=== PATIENT | female | born 1945 | race Caucasian/White ===

== ENCOUNTER 2017-02-12 20:14 | Emergency (ER) | payer MEDICARE | END 2017-02-12 22:27 | disposition home or self-care (01) | LOC: D.ER 20:14 | DX: L02.612 Cutaneous abscess of left foot (principal); E11.9 Type 2 diabetes mellitus without complications; E03.9 Hypothyroidism, unspecified; I73.9 Peripheral vascular disease, unspecified; M32.9 Systemic lupus erythematosus, unspecified; F17.200 Nicotine dependence, unspecified, uncomplicated ==

== ENCOUNTER → 2017-03-02 12:26 | Outpatient (CLI) | payer MEDICARE ==
[2017-03-02 13:45] LABS: CREATININE - SERUM 0.6 mg/dL (0.6-1.3)
== END | disposition home or self-care (01) ==
LOC: D.CT 12:26
PROVIDERS: Emergency Medicine
DX: I70.211 Atherosclerosis of native arteries of extremities with intermittent claudication, right leg (principal); I70.212 Atherosclerosis of native arteries of extremities with intermittent claudication, left leg; N19 Unspecified kidney failure

== ENCOUNTER 2017-05-06 10:03 | Emergency (ER) | payer MEDICARE ==
[2017-05-06 10:41] LABS: BASOPHILS 0.5 % (0-2); EOSINOPHILS 1.7 % (0-7); HEMATOCRIT 44.3 % (36.0-48.0); HEMOGLOBIN 14.5 g/dL (12-16); LYMPHOCYTES 17.8 % (15-50); MCH 30.2 pg (26.0-34.0); MCHC 32.7 g/dL (31.0-37.0); MCV 92.3 fL (80.0-100.0); MEAN PLATELET VOLUME 11.1 fL (7.4-10.4); MONOCYTES 9.6 % (2-11); NEUTROPHILS 69.4 % (40-80); PLATELET COUNT 249 10x3/uL (130-400); RDW 13.1 % (11.5-14.5); WBC 12.7 10x3/uL (4.8-10.8)
[2017-05-06 10:54] LABS: ALBUMIN 3.3 g/dL (3.4-5.0); ALKALINE PHOSPHATASE 82 U/L (46-116); ALT (SGPT) 20 U/L (10-68); BILIRUBIN - TOTAL 0.27 mg/dL (0.2-1.3); CALC OSMOLALITY 285 mosm/kg (275-300); CALCIUM 8.7 mg/dL (8.5-10.1); CARBON DIOXIDE 27.1 mmol/L (21.0-32.0); CHLORIDE - SERUM 102 mmol/L (98-107); CREATININE - SERUM 0.9 mg/dL (0.6-1.3); GLUCOSE 312 mg/dL (74-106); POTASSIUM - SERUM 3.7 mmol/L (3.5-5.1); PROTEIN - SERUM 7.1 g/dL (6.4-8.2); SODIUM 136 mmol/L (136-145); UREA NITROGEN 17 mg/dL (7-18); eGFR NON AFRICAN AMERICAN 66 mL/min (90-120)
[2017-05-06 11:01] LABS: CREATINE KINASE 60 UL (21-215); PRO BNP 431 pg/mL (0-125)
[2017-05-06 11:02] LABS: TROPONIN-I < 0.017 ng/mL (0.000-0.060)
== END 2017-05-06 19:03 | disposition home or self-care (01) ==
LOC: D.ER 10:03
PROVIDERS: Nurse Practitioner Family
DX: R42 Dizziness and giddiness (principal); I65.23 Occlusion and stenosis of bilateral carotid arteries; E11.8 Type 2 diabetes mellitus with unspecified complications; M32.9 Systemic lupus erythematosus, unspecified; E03.9 Hypothyroidism, unspecified

== ENCOUNTER 2017-07-07 14:44 | Emergency (ER) | payer MEDICARE ==
[2017-08-16] MEDS ORDERED: HYDROCODONE-APA1 TAB PO (10:41)
[2017-08-16] MEDS ORDERED: HUMULIN R100 U/ML SC (10:46)
[2017-08-16] MEDS ORDERED: METOPROLOL TART25 MG PO (10:47)
[2017-08-16] MEDS ORDERED: NOVOLIN N100 U/ML SQ (10:47)
[2017-08-16] MEDS ORDERED: STERAPRED 5MG 125 MG PO (10:48)
[2017-08-16] MEDS ORDERED: CILOSTAZOL100 MG PO (10:48)
[2017-08-16] MEDS ORDERED: PLAQUENIL200 MG PO (10:48)
[2017-08-16] MEDS ORDERED: GLYBURIDE1.25 MG PO (10:50)
[2017-08-20 17:13] VITALS: BMI 32.1
== END 2017-07-07 17:57 | disposition home or self-care (01) ==
LOC: D.ER 14:44
DX: M79.671 Pain in right foot (principal); E11.9 Type 2 diabetes mellitus without complications; M32.9 Systemic lupus erythematosus, unspecified

== ENCOUNTER → 2017-07-17 08:58 | Outpatient (CLI) | payer MEDICARE ==
[~2017-07-17 08:58] MED LIST: ASPIRIN81 MG PO; CILOSTAZOL100 MG PO; DAKIN'S 0.125%480 M1 TOPICAL; FEXOFENADINE HC60 MG PO; GLYBURIDE1.25 MG PO; HUMULIN R100 U/ML SC; HYDROCODONE-APA1 TAB PO; LANTUS INSULIN10 ML SC; LOVENOX30 MG/0.3 SC; METOPROLOL TART25 MG PO; NALOXONE HC0.4 MG/M2 IV; NOVOLIN N100 U/ML SQ; PLAQUENIL200 MG PO; PLAVIX75 MG PO; PLETAL PO; PREDNISONE5 MG PO; PROTONIX I40 MG/VIAL IV; STERAPRED 5MG 125 MG PO; SYNTHROID125 MCG PO; VANCOMYCIN 750750 MG IV; ZOSYN 3.3753.375 G1 IV
--- NOTE | 2017-07-24 12:15 | EC ---
PATIENT:STEPHANIE TRUJILLO DATE OF SERVICE: 07/17/17 SEX: F MEDICAL RECORD: [id number] DATE OF : 49 LOCATION:D.[facility] AGE OF PATIENT: 71 ADMISSION DATE: 07/17/17 REFERRING PHYSICIAN: INTERPRETING PHYSICIAN: ELYSIA VERA MD ECHOCARDIOGRAM REPORT ECHO CHARGES 4 ECHO COMPLETE CLINICAL DIAGNOSIS: HYPERTENSION ECHOCARDIOGRAPHIC MEASUREMENTS (adult normal given) AC root (d.<3.7cm) 3.0 cm LV Septum d (<1.2 cm> 1.3 cm Valve Excursion 1.3 cm LV Septum (systole) 1.6 cm Left Atria (s.<4.0cm> 4.5 cm LVPW d(<1.2cm) 1.3 cm RV (d.<2.3cm) 2.8 cm LVPW (sytole) 1.8 cm LV diastole(<5.6CM) 3.5 cm MV E-F(>70mm/sec) cm LV systole 2.2 cm LVOT Diameter 1.5 cm MV exc.(>10mm) cm Est.ejection fraction (50-75%) % Pericardial Effusion N DOPPLER: LVIT cm/sec A 190 cm/sec E 134 cm/sec LA cm/sec RVSP 27 mmHg LVOT 167 cm/sec AOP1/2T m/s Asc. Ao 190 cm/sec RVOT 103 cm/sec RA cm/sec PA 121 cm/sec AV Gradient Peak 14.78mmHg AV Mean 8.47 mmHg AV Area 1.8 cm MV Gradient Peak 15.64mmHg MV Mean 7.13 mmHg MV Area cm COMMENTS: MVA BY PHT 1.6 CM2 Programmer Numerical Control: Fain CROUCH Industrial Roofer: Fani Blackman TAPE# PACS DATE OF SERVICE: 07/17/2017 ECHOCARDIOGRAM FINDINGS: 1. Left ventricular chamber size is within normal limits. Left ventricular systolic function is normal. Overall ejection fraction estimated at 55% to 60%. 2. Left atrium, right atrium and right ventricular chamber sizes are within normal limits. 3. Valvular structures: Aortic valve demonstrates mild calcific aortic ECHOCARDIOGRAM REPORT [id number] STEPHANIE TRUJILLO sclerosis, but no significant aortic stenosis. The remaining valvular structures have normal structure and motion. 4. Doppler interrogation only reveals mild mitral regurgitation. No other valvular insufficiency or stenosis. 5. No evidence of pericardial effusion or left ventricular thrombus. TRANSINT:[id number] Voice Confirmation ID: [id number] DOCUMENT ID: [id number] ELYSIA VERA MD at 1215 CC: [id number] DICTATION DATE: 07/17/17 1100 LAN MANAGER: 07/17/17 1116 DEP CLI 07/17/17 [place] [id number] [place] [id number]
[2017-08-20 17:13] VITALS: BMI 32.1
== END | disposition home or self-care (01) ==
LOC: D.ECHO 07-16 10:30
DX: I10 Essential (primary) hypertension (principal); R06.02 Shortness of breath

== ENCOUNTER 2017-08-17 05:10 | Inpatient (IN) | payer MEDICARE ==
[2017-08-16 12:42] LABS: HEMATOCRIT 43.3 % (36.0-48.0); HEMOGLOBIN 13.8 g/dL (12-16); MCH 29.8 pg (26.0-34.0); MCHC 31.9 g/dL (31.0-37.0); MCV 93.5 fL (80.0-100.0); MEAN PLATELET VOLUME 11.2 fL (7.4-10.4); RBC 4.63 10x6/uL (4.00-5.40); RDW 13.4 % (11.5-14.5); WBC 12.8 10x3/uL (4.8-10.8)
[2017-08-16 12:45] LABS: APTT 28.3 SECONDS (22.8-39.4); INR 1.09 (0.85-1.17); PROTIME 13.7 SECONDS (11.6-15.0)
[2017-08-16 13:03] LABS: ALBUMIN 3.6 g/dL (3.4-5.0); ALKALINE PHOSPHATASE 109 U/L (46-116); ALT (SGPT) 17 U/L (10-68); BILIRUBIN - TOTAL 0.33 mg/dL (0.2-1.3); CALC OSMOLALITY 286 mosm/kg (275-300); CALCIUM 9.6 mg/dL (8.5-10.1); CARBON DIOXIDE 26.4 mmol/L (21.0-32.0); CHLORIDE - SERUM 102 mmol/L (98-107); CREATININE - SERUM 0.7 mg/dL (0.6-1.3); SODIUM 140 mmol/L (136-145); UREA NITROGEN 25 mg/dL (7-18); eGFR NON AFRICAN AMERICAN 88 mL/min (90-120)
[2017-08-16 13:04] LABS: GLUCOSE 170 mg/dL (74-106)
[2017-08-17] VITALS (30 sets, daily range): BP systolic 122–192; BP diastolic 43–72; BMI 28.4; BMI 30.9
[~2017-08-17] VITALS: Ht 162.6 cm; Wt 84.8 kg
--- NOTE | ~2017-08-17 | OP ---
PATIENT NAME: STEPHANIE TRUJILLO MEDICAL RECORD: [id number] :49 LOCATION:D.[id number] ADMISSION DATE:08/18/17 SURGEON: ELIAN CORBIN MD DATE OF OPERATION: 08/23/2017 PREOPERATIVE DIAGNOSIS: Osteomyelitis of the left foot with gangrenous second and third toes. POSTOPERATIVE DIAGNOSIS: Osteomyelitis of the left foot with gangrenous second and third toes. PROCEDURE: Amputation of the second and third gangrenous toe, amputation of the second toe left toe, amputation of third left toe. Excisional debridement of the foot wound with excision of the medial cuneiform and application of Neox graft. OPERATIVE SUMMARY IN DETAIL: After obtaining the appropriate preoperative orthopedic surgery consent as well as anesthetic consultation, evaluation, and clearance, the patient was brought to the operating room and placed on the operating table in supine position. After general laryngeal mask was administered, left lower extremity was prepped and draped in routine sterile fashion. Tourniquet was not inflated. Attention was first turned to amputation of dry gangrenous toes. Elliptical incision was made about the base of both and they were essentially disarticulated. Wounds were irrigated and closed with 3-0 Prolene. Both knives, scalpel, and rongeur debridement was utilized across the entire bed of the previously infected wound and the medial cuneiform was identified and removed in its entirety using a rongeur as well as a curette. Copious irrigation was then followed by placement of Neox graft, which was sewn into the wound bed over the exposed bone. Having completed this, sterile dressings were applied. The patient was awakened, taken to recovery room in stable condition. All final needle and sponge counts were correct. TRANSINT:[id number] Voice Confirmation ID: [id number] DOCUMENT ID: [id number] ELIAN CORBIN MD at 1651 CC: [id number] DICTATION DATE: 08/27/17 1335 BAR TURNER: 08/27/17 1610 DIS IN 08/24/17 [place] [id number] [place] [id number]
--- NOTE | ~2017-08-17 | HP ---
PATIENT: STEPHANIE TRUJILLO MEDICAL RECORD: [id number] ACCOUNT: [id number] LOCATION:D.OPS : 49 ADMISSION DATE: 08/17/17 HISTORY AND PHYSICAL EXAMINATION STEPHANIE Daniels (71yo, F) ID# [id number]. Date/Time08/08/2017 09:85QIYCP97/29/1948[facility] Dept.[facility] ClinicProviderAYDE PEREZ MDInsuranceMed Primary: [place] Insurance # : [id number] Referring Provider Name : NEVA GONZALEZ Employer Name : UNKNOWN Med Secondary: [employer] (MEDICARE SUPPLEMENT) Insurance # : [id number] Employer Name : UNKNOWN Prescription: Curetis - This member could not be found in the payer's files. Please verify coverage and all member demographic information. Chief Complaint Followup: Chronic ulcer of lower extremity Followup: Atherosclerosis of arteries of the extremities FOLLOWING NON HEALING WOUND LLE/FOLLOWING PVD Patient's Care Team Referring Provider (): NEVA GONZALEZ: [place], [address] [place] [address], , Referring Provider: ERIK DIAZ MD: Margaret BAINS [address] [place] [id number], , Vitals BP:122/64 sitting L arm 08/08/2017 10:16 amBP Cuff Size:adult 08/08/2017 10:16 amHR:68,REG 08/08/2017 10:16 amHt:5 ft 4 in 08/08/2017 10:12 amWt:170 lbs 08/08/2017 10:16 amNotes:HAD AMPUTATION ON LLE GREAT TOE SINCE LAST VISIT, HAD WOUND CLINIC APPT THIS AM 08/08/2017 10:16 amBMI:29.2 08/08/2017 10:16 amAllergies Reviewed Allergies NKDAMedications Reviewed Medications acyclovir 400 mg tablet TAKE 1 TABLET BY MOUTH 3 TIMES A DAY FOR 10 DAYS05/31/17 filledsurescriptsHYDROcodone 10 mg-acetaminophen 325 mg tablet TAKE 1 TABLET BY MOUTH EVERY 6 HOURS NEEDED FOR MODERATE PAIN06/14/17 filledsurescriptsinsulin NPH and reg human insulin 100 unit/mL (70-30)subcutaneous susp Inject by subcutaneous route.03/16/17 enteredIbis Edwardsinsulin regular human03/16/17 Vidal Edwardsmeclizine 25 mg tablet TAKE 1 TABLET BY MOUTH 3 TIMES DAILY NEEDED FOR FORWBJKMU44/24/17 filledsurescriptsmetoprolol tartrate 25mg twice daily03/16/17 Vidal EdwardsPlaquenil 200 mg tablet Take 1 tablet(s) twice a day by oral route.03/16/17 Vidal EdwardsPletal 100 mg tablet Take 1 tablet(s) twice a day by oral route.03/16/17 Vdial EdwardspredniSONE 5mg onmttu04/04/17 Vidal Edwardssulfamethoxazole 800 mg-trimethoprim 160 mg tablet TAKE 1 TABLET BY MOUTH EVERY 12 HOURS FOR 14 DAYS06/14/17 dtnfqmpjnhzxljaykVzaxkmdxk52/04/17 Vidal EdwardsProblems Reviewed Problems Gangrene of foot - Onset: 08/08/2017 Open wound - Onset: 08/08/2017 HISTORY AND PHYSICAL [id number] STEPHANIE TRUJILLO Carotid artery stenosis - Onset: 03/16/2017 Chronic ulcer of lower extremity - Onset: 03/14/2017 Atherosclerosis of arteries of the extremities - Onset: 03/14/2017 Family History Reviewed Family History Father- Heart valve disorderMother- Malignant tumor of colonSocial History Reviewed Social History Cardiology Family history of heart disease?: Y Smoking Status: Former smoker High Cholesterol: Y High blood pressure: Y Diabetes: Y Surgical History Reviewed Surgical History Other - "mutiple leg surgies" 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 HPI Peripheral Vascular Disease Reported by patient. Location: calf; foot Quality: cramping Severity: interferes with normal activity Duration: has noted for months Onset/Timing: intermittent; several times per day Context: during walking Alleviating Factors: rest Aggravating Factors: walking Associated Symptoms: numbness; paresthesias; skin discoloration nonhealing wound left foot ROS Patient reports exercise intolerance but reports no fever, no night sweats, no significant weight gain, and no significant weight loss. She reports shortness of breath when walking but reports no chest pain, no arm pain on exertion, no shortness of breath when lying down, no palpitations, and no known heart murmur. She reports urinary loss of control but reports no difficulty urinating, no hematuria, and no increased frequency. She reports muscle aches, muscle weakness, and arthralgias/joint pain but reports no back pain and no swelling in the extremities; nonhealing wound and dry gangrene. She reports no abnormal mole, no jaundice, and no rashes; nonhealing ulcer left MP joint. left toe. She reports numbness but reports HISTORY AND PHYSICAL [id number] STONE,STEPHANIE R no loss of consciousness, no weakness, no seizures, no dizziness, and no headaches; Tremor with decreased blood pressure. She reports no dry eyes, no irritation, and no vision change. She reports no difficulty hearing and no ear pain. She reports no frequent nosebleeds and no nose/s inus problems. She reports no sore throat, no bleeding gums, no snoring, no dry mouth, no mouth ulcers, no oral abnormalities, and no teeth problems. She reports no jugular vein distension and no swollen glands. She reports no cough, no wheezing, no short n ess of breath, and no coughing up blood. She reports no abdominal pain, no vomiting, normal appetite, no diarrhea, not vomiting blood, no nausea, and no constipation. She reports no depression, no sleep disturbances, feeling safe in relationship, and no a lcohol abuse. She reports no fatigue. She reports no swollen glands and no bruising. She reports no runny nose, no sinus pressure, no itching, no hives, and no frequent sneezing. ROS as noted in the HPI Physical Exam Patient is a 71-year-old female. Constitutional: General Appearance healthy-appearing, well developed, and overweight. Level of Distress chronically ill. Ambulation ambulation with walker. Cardiovascular: Apical Impulse not displaced or no thrill. Heart Auscultation normal s1 and s2, no rubs or gallops, and RRR and murmur (aortic stenosis Mitral regurgitation). Arterial Pulses no abdominal aorta bruits, femoral bruits, or popliteal bruits; popliteal not palpable (bilateral) and dorsalis pedis not palpable (bilateral); and 2+ bilateral, carotid 2+ bilateral, and femoral 2+ bilateral. Edema no edema or varicosities. Lungs: Repiratory Effort no dyspnea. Percussion no hyperresonance or dullness or flatness. Auscultation no wheezing, rhonchi, or rales / crackles and breathing sounds normal, good air movement, and CTA except as noted. Abdomen: Bowl Sounds normal. Inspection and Palpation no tenderness, guarding, masses, or rebound tenderness and soft and non-distended. Liver non-tender and no hepatomegaly. Spleen non-tender and no splenomegaly. Hernia none palpable. Musculoskeletal System: Gait And Stance wide-based and irregular gait and stance. Digits and Nails normal nails, no cyanosis, and abnormal nails; ulcer MP joint left great toe medially. Joints, Bones, and Muscles limited ROM and abnormal strength; nonhealing wound left great toe amputation. Neurologic: Cranial Nerves grossly intact. Reflexes DTRs 2+ bilaterally throughout. Sensation abnormal. Lymph Nodes: Lymph Nodes no cervical LAD, supraclavicular LAD, axillary LAD, or inguinal LAD. Eyes: Lids and Conjunctivae no discharge or pallor and non-injected. Pupils PERRLA. Cornea grossly intact. EOM EOMI. Lens clear. Sclera non-icteric. Neck: Neck no masses or enlarged lymph nodes and supple, trachea midline, and carotid bruits (bilaterally). Thyroid no enlargement or nodules and non-tender. Skin: Inspection and Palpation no rash, lesions, ulcers, jaundice, or abnormal nevi. Assessment / Plan severe atherosclerosis left superficial femoral artery and infrageniculate vessels with open wound and gangrene left foot HISTORY AND PHYSICAL [id number] STEPHANIE TRUJILLO 1. Atherosclerosis of arteries of the extremities I70.209: Unspecified atherosclerosis of [place] arteries of extremities, unspecified extremity 2. Chronic ulcer of lower extremity L97.909: Non-pressure ch ronic ulcer of unspecified part of unspecified lower leg with unspecified severity 3. Gangrene of foot I96: Gangrene, not elsewhere classified Discussion Notes open wound left foot with gangrenous second and third toes Severe superficial femoral artery popliteal and infrageniculate atherosclerosis I have discussed her disease process with her in detail as well as the alternative methods of treatment we discussed endovascular as well as open procedures and the expected benefits and risk. Th e risks included bleeding infection stroke and as well as well as the imponderables. she understands all of the above and wishes to proceed with planned procedure Plan right to left lower extremity intervention probable atherectomy AYDE PEREZ MD at 1550 CC: [id number] DICTATION DATE: 08/08/17 0945 MARKETING RESEARCH COORDINATOR: MARKIE 08/09/17 1430 PRE [facility] [address] [place] [address]
--- NOTE | ~2017-08-17 | OP ---
PATIENT NAME: STEPHANIE TRUJILLO MEDICAL RECORD: [id number] :49 LOCATION:.[facility] D.CV03 ADMISSION DATE:08/18/17 SURGEON: EARL HOLLINGSWORTH MD DATE OF OPERATION: 08/17/2017 SURGEON: Earl Hollingsworth MD ANESTHESIA: General endotracheal, Dr. Diallo. OPERATION PERFORMED: 1. Right retrograde sheath placements, 4-Guyanese, 5-Guyanese, 6-Guyanese long. 2. Right retrograde external iliac arteriogram. 3. Left distal external iliac arteriogram. 4. Left superficial femoral artery arteriogram. 5. 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 6. Left popliteal and peroneal artery arteriogram. 7. Left popliteal artery arteriogram. 8. Left plantar arch arteriogram. 9. Diamondback atherectomy 1.25 device of the distal popliteal artery. 10. Diamondback 1.25 left posterior tibioperoneal artery trunk. 11. Angioplasty of the left posterior tibial artery with a 3.0 balloon. 12. Angioplasty of posterior tibial artery with a 2.0 balloon. 13. Diamondback atherectomy of the entire left superficial femoral artery. 14. Angioplasty of the entire left superficial femoral artery with a 4 x 300 balloon. 15. Left common femoral arteriogram with runoff. 16. Left popliteal artery at the ankle gram of the foot. PREOPERATIVE DIAGNOSIS: Gangrenous toes, left foot nonhealing wound. POSTOPERATIVE DIAGNOSIS: Multiple stenoses and chronic total occlusions of the left superficial femoral artery, severe stenosis of the distal popliteal artery greater than 90%, severe stenosis of the peroneal artery trunk and posterior tibial artery. INDICATION FOR OPERATION: Gangrene, left foot. FLUORO TIME: 27 minutes and 20 seconds. CONTRAST: 289 mL. FINDINGS OF THE OPERATION: 1. Left retrograde external iliac arteriogram demonstrates nonocclusive disease in the common iliac artery and external iliac artery. 2. Left distal external iliac arteriogram demonstrates severe stenosis at the takeoff of the superficial femoral artery. 3. Left superficial femoral arteriogram, selective demonstrates multiple stenotic areas greater than 90% and chronic total occlusion in the midportion of the superficial femoral artery times 2. 4. 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 5. Left popliteal arteriogram demonstrates severe stenosis of the distal popliteal artery at the takeoff of the anterior tibial artery. 6. Left posterior tibioperoneal artery arteriogram demonstrates severe stenosis at the bifurcation of the posterior tibial artery and peroneal artery greater than 90%. OPERATIVE REPORT [id number] STEPHANIE TRUJILLO 7. Left posterior tibial artery stenosis 70% in the proximal one-third. 8. Left posterior tibial plantar arch arteriogram demonstrates severe disease, but a continuous posterior tibial artery on the plantar surface. 9. Diamondback atherectomy of left popliteal artery, much improved flow, but suboptimal. 10. Diamondback atherectomy of left posterior tibioperoneal artery trunk better flow, but suboptimal. 11. Angioplasty of the left posterior tibial artery, peroneal artery trunk with a 3.0 balloon as well as the popliteal artery with an excellent result and no residual stenosis. 12. Angioplasty of the proximal posterior tibial artery with a 2.0 balloon demonstrates much improved flow through this dominant artery to the foot. 13. Diamondback atherectomy of the left superficial femoral artery demonstrates multiple areas of stenosis with improved flow. 14. Angioplasty of the left superficial femoral artery 4.0 x 300 demonstrates much improved flow through the entire superficial femoral artery with brisk runoff to the foot. 15. Left common femoral arteriogram with runoff demonstrates good flow through the superficial femoral artery, popliteal artery, posterior tibioperoneal artery trunk and good flow to the ankle in the peroneal artery with collaterals to the foot and had an excellent dominant artery to the foot via the posterior tibial artery. 16. Posterior tibial arteriogram at the ankle demonstrates good flow to the nonhealing area of the foot. DESCRIPTION OF PROCEDURE: After informed consent, adequate preoperative medication evaluation, the patient was brought to the operating room, placed on the table in the supine position. After induction of general endotracheal anesthesia and application of appropriate monitoring devices, the chest, neck, abdomen, and both legs were prepped and draped in a sterile field utilizing Betadine scrub, alcohol, and Betadine solution. A Betadine-impregnated drape was also used. Ultrasound was used to localize the superficial femoral artery. A micropuncture was used, a 4-Guyanese sheath placed and exchanged for a 5-Guyanese sheath. An arteriogram demonstrated the above findings as well as the anatomy. A Glidewire was manipulated into the aorta followed by a rim catheter. The rim catheter was then seated in the left common iliac artery and a Glidewire placed into the profunda femoral artery. The catheter was advanced through the profunda femoral artery and exchange made for Amplatz wire, exchange was then made for a long 6-Guyanese sheath. The superficial femoral artery was identified by the common femoral arteriogram. The superficial femoral artery was then cannulated and arteriogram demonstrated multiple severe stenotic areas and 2 chronic total occlusions. Utilizing multiple wires, catheters and arteriograms, the superficial femoral artery was negotiated and a popliteal artery performed demonstrated the severe stenosis at the takeoff of the anterior tibial artery. Utilizing multiple wires and Quick-Cross catheters, the posterior tibial artery was cannulated. Popliteal arteriogram was used to manipulate a catheter into the posterior tibial artery and arteriogram demonstrates severe stenosis at the bifurcation of the posterior tibial and peroneal artery. The posterior tibial artery was then cannulated and a wire manipulated into the ankle. Arteriogram at the ankle demonstrated a patent posterior tibial artery and plantar arch. Exchange was made for a Viper wire. Diamondback atherectomy was then performed on the posterior tibioperoneal artery trunk as well as the popliteal artery. These were dilated with 3.0 x 120 balloon with an excellent result. The attention was then turned toward the superficial femoral artery. The Diamondback was then used to atherectomize the OPERATIVE REPORT [id number] STEPHANIE TRUJILLO R entire superficial femoral artery with much improved flow. A 4.0 x 300 balloon was then used to dilate the superficial femoral artery with an excellent result. Arteriogram confirmed good flow through this area. A catheter was placed in the popliteal artery and an infrageniculate arteriogram demonstrated good flow into the posterior tibioperoneal artery trunk. A 0.018 Quick-Cross catheter was placed in the posterior tibial artery at the ankle and arteriogram demonstrated good flow through the posterior tibial artery into the foot and ulcerated area. The catheters, wires, and sheaths were removed. A 6-Guyanese Angio-Seal was used to close the puncture site on the right and 50 mg of protamine were given to partially reverse the heparin. The patient had good Doppler pulses in both feet. She tolerated the procedure well and transferred to the CVICU in satisfactory condition. TRANSINT:[id number] Voice Confirmation ID: [id number] DOCUMENT ID: [id number] EARL HOLLINGSWORTH MD at 1337 CC: [id number] DICTATION DATE: 08/17/17 1452 [employer] COMPANY PRODUCER: 08/17/17 1536 ADM IN [facility] 0 [place] [id number]
[~2017-08-17 05:10] MED LIST changes: -ASPIRIN81 MG PO; -DAKIN'S 0.125%480 M1 TOPICAL; -FEXOFENADINE HC60 MG PO; -LANTUS INSULIN10 ML SC; -LOVENOX30 MG/0.3 SC; -NALOXONE HC0.4 MG/M2 IV; -PLAVIX75 MG PO; -PLETAL PO; -PREDNISONE5 MG PO; -PROTONIX I40 MG/VIAL IV; -SYNTHROID125 MCG PO; -VANCOMYCIN 750750 MG IV; -ZOSYN 3.3753.375 G1 IV
[2017-08-17] MEDS ORDERED: DAKIN'S 0.125%480 M1 TOPICAL (05:58)
[2017-08-17] MEDS ORDERED: PREDNISONE5 MG PO (18:38)
[2017-08-17 20:29] LABS: APPEARANCE CLEAR (CLEAR); BILIRUBIN NEGATIVE (NEGATIVE); COLOR YELLOW (YELLOW); GLUCOSE 500 mg/dL (NEGATIVE); KETONE NEGATIVE (NEGATIVE); NITRITE NEGATIVE (NEGATIVE); PROTEIN NEGATIVE (NEGATIVE); UROBILINOGEN NORMAL (NORMAL)
[2017-08-17 20:40] LABS: BACTERIA FEW /hpf (NONE SEEN); EPITHELIAL CELLS 0-5 /hpf (0-5); RED CELLS - URINE OCC /hpf (0-5)
[2017-08-18] VITALS (26 sets, daily range): BP systolic 113–150; BP diastolic 28–60; BMI 32.1
[2017-08-18 06:18] LABS: HEMATOCRIT 34.4 % (36.0-48.0); HEMOGLOBIN 10.7 g/dL (12-16); MCH 29.1 pg (26.0-34.0); MCHC 31.1 g/dL (31.0-37.0); MCV 93.5 fL (80.0-100.0); MEAN PLATELET VOLUME 10.9 fL (7.4-10.4); RBC 3.68 10x6/uL (4.00-5.40); RDW 13.6 % (11.5-14.5); WBC 17.1 10x3/uL (4.8-10.8)
[2017-08-18 06:42] LABS: ANION GAP 11.7 mmol/L (8-16); BILIRUBIN - TOTAL 0.4 mg/dL (0.2-1.3); CALCIUM 7.7 mg/dL (8.5-10.1); POTASSIUM - SERUM 3.7 mmol/L (3.5-5.1); PROTEIN - SERUM 5.5 g/dL (6.4-8.2)
[2017-08-18 06:43] LABS: ALBUMIN 2.3 g/dL (3.4-5.0); CREATININE - SERUM 0.9 mg/dL (0.6-1.3)
[2017-08-18 09:26] LABS: % SATURATION 11 % (15-55); IRON 26 ug/dl (35-150); TOTAL IRON BIND CAPACITY 217 ug/dl (260-445); UNSAT IRON BIND CAPACITY 191 ug/dl (150-375)
[2017-08-19] VITALS: BP 92/47
[2017-08-19 04:00] VITALS: BP 134/49
[2017-08-19 05:20] LABS: BASOPHILS 0.2 % (0-2); EOSINOPHILS 7.4 % (0-7); HEMATOCRIT 34.2 % (36.0-48.0); HEMOGLOBIN 10.5 g/dL (12-16); IMMATURE GRANULOCYTES 0.6 % (0-5); LYMPHOCYTES 8.1 % (15-50); MCHC 30.7 g/dL (31.0-37.0); MCV 94.5 fL (80.0-100.0); MEAN PLATELET VOLUME 10.8 fL (7.4-10.4); MONOCYTES 7.6 % (2-11); NEUTROPHILS 76.1 % (40-80); PLATELET COUNT 227 10x3/uL (130-400); RBC 3.62 10x6/uL (4.00-5.40); RDW 13.7 % (11.5-14.5)
[2017-08-19 05:22] LABS: WBC 12.6 10x3/uL (4.8-10.8)
[2017-08-19 08:15] VITALS: BP 153/56
[2017-08-19 12:43] VITALS: BP 178/72
[2017-08-19 16:11] VITALS: BP 156/57
[2017-08-19 20:00] VITALS: BP 133/49
[2017-08-20 04:00] VITALS: BP 169/61
[2017-08-20 06:29] LABS: CALCIUM 8.3 mg/dL (8.5-10.1); CARBON DIOXIDE 27.5 mmol/L (21.0-32.0); CHLORIDE - SERUM 103 mmol/L (98-107); CREATININE - SERUM 0.7 mg/dL (0.6-1.3); SODIUM 138 mmol/L (136-145); eGFR NON AFRICAN AMERICAN 88 mL/min (90-120)
[2017-08-20 06:33] LABS: CALC OSMOLALITY 281 mosm/kg (275-300); GLUCOSE 182 mg/dL (74-106); UREA NITROGEN 14 mg/dL (7-18)
[2017-08-20 06:41] LABS: APTT 41.3 SECONDS (22.8-39.4); INR 1.28 (0.85-1.17); PROTIME 15.5 SECONDS (11.6-15.0)
[2017-08-20 08:02] LABS: BASOPHILS 0.3 % (0-2); EOSINOPHILS 4.3 % (0-7); HEMATOCRIT 31.6 % (36.0-48.0); HEMOGLOBIN 9.8 g/dL (12-16); IMMATURE GRANULOCYTES 1.3 % (0-5); LYMPHOCYTES 19.9 % (15-50); MCH 29.2 pg (26.0-34.0); MEAN PLATELET VOLUME 11.2 fL (7.4-10.4); MONOCYTES 12.5 % (2-11); NEUTROPHILS 61.7 % (40-80); PLATELET COUNT 227 10x3/uL (130-400); RBC 3.36 10x6/uL (4.00-5.40); RDW 13.7 % (11.5-14.5); WBC 11.1 10x3/uL (4.8-10.8)
[2017-08-20 08:14] VITALS: BP 184/65
[2017-08-20 09:27] LABS: MAGNESIUM - SERUM 1.7 mg/dL (1.8-2.4); PHOSPHOROUS 2.9 mg/dL (2.5-4.9)
[2017-08-20 12:11] LABS: FOLATE (FOLIC ACID) - SERUM >20.0 ng/mL (>3.0)
[2017-08-20 13:11] VITALS: BP 202/70
[2017-08-20 17:13] VITALS: Ht 162.6 cm; Wt 84.8 kg
[2017-08-20 17:27] VITALS: BP 172/56
[2017-08-20 20:00] VITALS: BP 168/63
[2017-08-21 04:00] VITALS: BP 197/64
[2017-08-21 05:18] LABS: BASOPHILS 0.3 % (0-2); EOSINOPHILS 6.6 % (0-7); HEMATOCRIT 33.6 % (36.0-48.0); HEMOGLOBIN 10.5 g/dL (12-16); IMMATURE GRANULOCYTES 1.3 % (0-5); LYMPHOCYTES 24.5 % (15-50); MCH 29.1 pg (26.0-34.0); MCHC 31.3 g/dL (31.0-37.0); MCV 93.1 fL (80.0-100.0); MEAN PLATELET VOLUME 10.5 fL (7.4-10.4); MONOCYTES 13.3 % (2-11); PLATELET COUNT 245 10x3/uL (130-400); RBC 3.61 10x6/uL (4.00-5.40); RDW 13.6 % (11.5-14.5); WBC 10.7 10x3/uL (4.8-10.8)
[2017-08-21 05:49] LABS: ALBUMIN 2.3 g/dL (3.4-5.0); ALKALINE PHOSPHATASE 77 U/L (46-116); ALT (SGPT) 13 U/L (10-68); BILIRUBIN - TOTAL 0.26 mg/dL (0.2-1.3); CALC OSMOLALITY 286 mosm/kg (275-300); CALCIUM 8.7 mg/dL (8.5-10.1); CARBON DIOXIDE 28.9 mmol/L (21.0-32.0); CHLORIDE - SERUM 105 mmol/L (98-107); CREATININE - SERUM 0.7 mg/dL (0.6-1.3); GLUCOSE 150 mg/dL (74-106); SODIUM 142 mmol/L (136-145); UREA NITROGEN 15 mg/dL (7-18); eGFR NON AFRICAN AMERICAN 88 mL/min (90-120)
[2017-08-21 09:30] VITALS: BP 173/55
[2017-08-21 10:05] LABS: MAGNESIUM - SERUM 1.8 mg/dL (1.8-2.4); PHOSPHOROUS 3.5 mg/dL (2.5-4.9)
[2017-08-21 12:01] VITALS: BP 175/69
[2017-08-21 16:31] VITALS: BP 166/55
[2017-08-21 20:00] VITALS: BP 153/63
[2017-08-22 04:00] VITALS: BP 138/48
[2017-08-22 06:44] LABS: ALBUMIN 2.1 g/dL (3.4-5.0); ALKALINE PHOSPHATASE 68 U/L (46-116); ALT (SGPT) 13 U/L (10-68); BILIRUBIN - TOTAL 0.21 mg/dL (0.2-1.3); CALC OSMOLALITY 285 mosm/kg (275-300); CARBON DIOXIDE 26.5 mmol/L (21.0-32.0); CHLORIDE - SERUM 102 mmol/L (98-107); CREATININE - SERUM 0.7 mg/dL (0.6-1.3); GLUCOSE 271 mg/dL (74-106); POTASSIUM - SERUM 3.2 mmol/L (3.5-5.1); PROTEIN - SERUM 5.4 g/dL (6.4-8.2); SODIUM 137 mmol/L (136-145); UREA NITROGEN 19 mg/dL (7-18); eGFR NON AFRICAN AMERICAN 88 mL/min (90-120)
[2017-08-22 07:40] LABS: BASOPHILS 0.6 % (0-2); EOSINOPHILS 7.4 % (0-7); HEMATOCRIT 33.2 % (36.0-48.0); HEMOGLOBIN 10.6 g/dL (12-16); IMMATURE GRANULOCYTES 2.2 % (0-5); MCH 29.6 pg (26.0-34.0); MCHC 31.9 g/dL (31.0-37.0); MCV 92.7 fL (80.0-100.0); MEAN PLATELET VOLUME 10.6 fL (7.4-10.4); MONOCYTES 10.4 % (2-11); NEUTROPHILS 48.4 % (40-80); PLATELET COUNT 290 10x3/uL (130-400); RBC 3.58 10x6/uL (4.00-5.40); RDW 13.6 % (11.5-14.5); WBC 12.5 10x3/uL (4.8-10.8)
[2017-08-22 08:16] VITALS: BP 132/60
[2017-08-22 12:25] VITALS: BP 170/67
[2017-08-22 16:21] VITALS: BP 186/69
[2017-08-22 20:00] VITALS: BP 183/71
[2017-08-23] VITALS (10 sets, daily range): BP systolic 154–200; BP diastolic 49–92
[2017-08-23 05:11] LABS: BASOPHILS 0.6 % (0-2); HEMATOCRIT 34.6 % (36.0-48.0); HEMOGLOBIN 10.9 g/dL (12-16); IMMATURE GRANULOCYTES 2.8 % (0-5); LYMPHOCYTES 25.7 % (15-50); MCH 29.4 pg (26.0-34.0); MCHC 31.5 g/dL (31.0-37.0); MCV 93.3 fL (80.0-100.0); MEAN PLATELET VOLUME 10.4 fL (7.4-10.4); MONOCYTES 12.2 % (2-11); NEUTROPHILS 50.7 % (40-80); PLATELET COUNT 284 10x3/uL (130-400); RBC 3.71 10x6/uL (4.00-5.40); RDW 13.8 % (11.5-14.5); WBC 12.7 10x3/uL (4.8-10.8)
[2017-08-23 07:11] LABS: ALBUMIN 2.3 g/dL (3.4-5.0); ALKALINE PHOSPHATASE 71 U/L (46-116); ALT (SGPT) 12 U/L (10-68); CALCIUM 8.6 mg/dL (8.5-10.1); CARBON DIOXIDE 26.5 mmol/L (21.0-32.0); CHLORIDE - SERUM 109 mmol/L (98-107); CREATININE - SERUM 0.6 mg/dL (0.6-1.3); POTASSIUM - SERUM 3.7 mmol/L (3.5-5.1); PROTEIN - SERUM 5.9 g/dL (6.4-8.2); SODIUM 145 mmol/L (136-145); UREA NITROGEN 16 mg/dL (7-18); VANCOMYCIN - TROUGH 22.5 ug/mL (10.0-20.0); eGFR NON AFRICAN AMERICAN > 90 mL/min (90-120)
[2017-08-23 07:12] LABS: CALC OSMOLALITY 290 mosm/kg (275-300); GLUCOSE 116 mg/dL (74-106)
[2017-08-24] VITALS: BP 154/47
[2017-08-24 04:00] VITALS: BP 137/46
[2017-08-24 05:29] LABS: ALBUMIN 2.1 g/dL (3.4-5.0); ALKALINE PHOSPHATASE 67 U/L (46-116); ALT (SGPT) 12 U/L (10-68); BILIRUBIN - TOTAL 0.32 mg/dL (0.2-1.3); CALC OSMOLALITY 285 mosm/kg (275-300); CALCIUM 8.1 mg/dL (8.5-10.1); CARBON DIOXIDE 25.5 mmol/L (21.0-32.0); CHLORIDE - SERUM 105 mmol/L (98-107); CREATININE - SERUM 0.8 mg/dL (0.6-1.3); GLUCOSE 202 mg/dL (74-106); POTASSIUM - SERUM 3.2 mmol/L (3.5-5.1); PROTEIN - SERUM 5.6 g/dL (6.4-8.2); SODIUM 140 mmol/L (136-145); UREA NITROGEN 16 mg/dL (7-18); eGFR NON AFRICAN AMERICAN 75 mL/min (90-120)
[2017-08-24 07:55] VITALS: BP 145/53
[2017-08-24 12:13] VITALS: BP 150/53
[2017-08-24] MEDS ORDERED: FEXOFENADINE HC60 MG PO (12:21)
[2017-08-24] MEDS ORDERED: PLETAL PO (12:21)
[2017-08-24] MEDS ORDERED: PLAVIX75 MG PO (12:21)
[2017-08-24] MEDS ORDERED: ZOSYN 3.3753.375 G1 IV (12:21)
[2017-08-24] MEDS ORDERED: NALOXONE HC0.4 MG/M2 IV (12:22)
[2017-08-24] MEDS ORDERED: DAKIN'S 0.125%480 M1 TOPICAL (12:22)
[2017-08-24] MEDS ORDERED: LOVENOX30 MG/0.3 SC (12:22)
[2017-08-24] MEDS ORDERED: PROTONIX I40 MG/VIAL IV (12:22)
[2017-08-24] MEDS ORDERED: ASPIRIN81 MG PO (12:22)
[2017-08-24] MEDS ORDERED: HUMULIN R100 U/ML SC (12:23)
[2017-08-24] MEDS ORDERED: SYNTHROID125 MCG PO (12:23)
[2017-08-24] MEDS ORDERED: LANTUS INSULIN10 ML SC (12:23)
[2017-08-24] MEDS ORDERED: VANCOMYCIN 750750 MG IV (12:24)
[2017-08-29 17:11] LABS: AEROBE ID Final report (())
== END 2017-08-24 14:36 | disposition short-term general hospital (02) | DRG 854 ==
LOC: OBSVTIME → D.OPS 05:10 → D.PAN 07:30 → D.OPS 07:30 → OBSVTIME 14:18 → D.CVICU 14:18 → D.OPS 14:18 → D.CVICU 14:18 → D.MS 08-18 10:01 → D.CVICU 08-18 10:02 → D.MS 08-18 10:02 → D.CVICU 08-18 10:02 → D.MS 08-18 19:24
PROVIDERS: Emergency Medicine; Internal Medicine Cardiovascular Disease; Internal Medicine Nephrology; Orthopaedic Surgery
PROC: 04CN3ZZ Extirpation of Matter from Left Popliteal Artery, Percutaneous Approach (ICD-10-PCS; 2017-08-17)
PROC: 047S3ZZ Dilation of Left Posterior Tibial Artery, Percutaneous Approach (ICD-10-PCS; 2017-08-17)
PROC: 047L3ZZ Dilation of Left Femoral Artery, Percutaneous Approach (ICD-10-PCS; 2017-08-17)
PROC: 04CS3ZZ Extirpation of Matter from Left Posterior Tibial Artery, Percutaneous Approach (ICD-10-PCS; 2017-08-17)
PROC: 04CU3ZZ Extirpation of Matter from Left Peroneal Artery, Percutaneous Approach (ICD-10-PCS; 2017-08-17)
PROC: 04CL3ZZ Extirpation of Matter from Left Femoral Artery, Percutaneous Approach (ICD-10-PCS; 2017-08-17)
PROC: B41F1ZZ Fluoroscopy of Right Lower Extremity Arteries using Low Osmolar Contrast (ICD-10-PCS; 2017-08-17)
PROC: B41D1ZZ Fluoroscopy of Aorta and Bilateral Lower Extremity Arteries using Low Osmolar Contrast (ICD-10-PCS; 2017-08-17)
PROC: B41G1ZZ Fluoroscopy of Left Lower Extremity Arteries using Low Osmolar Contrast (ICD-10-PCS; principal; 2017-08-17 07:30)
PROC: 0Y6S0Z0 Detachment at Left 2nd Toe, Complete, Open Approach (ICD-10-PCS; 2017-08-23)
PROC: 0Y6U0Z0 Detachment at Left 3rd Toe, Complete, Open Approach (ICD-10-PCS; 2017-08-23)
DX: A41.9 Sepsis, unspecified organism (principal); E11.52 Type 2 diabetes mellitus with diabetic peripheral angiopathy with gangrene; I70.262 Atherosclerosis of native arteries of extremities with gangrene, left leg; I70.92 Chronic total occlusion of artery of the extremities; M86.9 Osteomyelitis, unspecified; E44.0 Moderate protein-calorie malnutrition; Z79.4 Long term (current) use of insulin; E11.65 Type 2 diabetes mellitus with hyperglycemia; M32.9 Systemic lupus erythematosus, unspecified; D50.9 Iron deficiency anemia, unspecified; E03.9 Hypothyroidism, unspecified; I10 Essential (primary) hypertension; E78.5 Hyperlipidemia, unspecified; F41.9 Anxiety disorder, unspecified; F32.9 Major depressive disorder, single episode, unspecified

== ENCOUNTER → 2017-11-06 10:42 | Outpatient (CLI) | payer MEDICARE ==
[2017-08-20 17:13] VITALS: BMI 32.1
[~2017-11-06 10:42] MED LIST changes: +ASPIRIN81 MG PO; +DAKIN'S 0.125%480 M1 TOPICAL; +DOXYCYCLINE HY100 M2 PO; +FEXOFENADINE HC60 MG PO; +LANTUS INSULIN10 ML SC; +LOVENOX30 MG/0.3 SC; +NALOXONE HC0.4 MG/M2 IV; +PLAVIX75 MG PO; +PLETAL PO; +PREDNISONE5 MG PO; +PROTONIX I40 MG/VIAL IV; +SYNTHROID125 MCG PO; +VANCOMYCIN 750750 MG IV; +ZOSYN 3.3753.375 G1 IV
== END | disposition home or self-care (01) ==
LOC: D.MRI 10:42
DX: M79.672 Pain in left foot (principal)

== ENCOUNTER 2017-11-26 11:00 | Day surgery (SDC) | payer MEDICARE ==
[2017-11-23 11:33] LABS: HEMATOCRIT 42.5 % (36.0-48.0); HEMOGLOBIN 13.7 g/dL (12-16); MCH 29.7 pg (26.0-34.0); MCHC 32.2 g/dL (31.0-37.0); MEAN PLATELET VOLUME 10.7 fL (7.4-10.4); RBC 4.62 10x6/uL (4.00-5.40); RDW 13.4 % (11.5-14.5); WBC 10.5 10x3/uL (4.8-10.8)
[2017-11-23 11:58] LABS: CALC OSMOLALITY 282 mosm/kg (275-300); CALCIUM 9.1 mg/dL (8.5-10.1); CARBON DIOXIDE 26.3 mmol/L (21.0-32.0); CHLORIDE - SERUM 103 mmol/L (98-107); CREATININE - SERUM 0.7 mg/dL (0.6-1.3); POTASSIUM - SERUM 3.9 mmol/L (3.5-5.1); SODIUM 140 mmol/L (136-145); UREA NITROGEN 22 mg/dL (7-18); eGFR NON AFRICAN AMERICAN 88 mL/min (90-120)
[2017-11-23 12:02] LABS: GLUCOSE 118 mg/dL (74-106)
[~2017-11-26] VITALS: Ht 162.6 cm; Wt 76.8 kg
--- NOTE | ~2017-11-26 | OP ---
PATIENT NAME: STEPHANIE TRUJILLO MEDICAL RECORD: [id number] :49 LOCATION:[facility] ADMISSION DATE: SURGEON: ELIAN CORBIN MD DATE OF OPERATION: 11/26/2017 PREOPERATIVE DIAGNOSIS: Residual osteomyelitis of the medial cuneiform of the left foot. POSTOPERATIVE DIAGNOSIS: Residual osteomyelitis of the medial cuneiform of the left foot. PROCEDURES: Wide excisional debridement approximately 41 cm-squared in total to include skin, subcutaneous tissue, portions of fat, fascia, muscle, and bone that is in fact the entire medial cuneiform. SURGEON: Elian Corbin MD ANESTHESIA: General. INTRAOPERATIVE COMPLICATIONS: None. SUMMARY OF PATHOLOGIC FINDINGS: The patient's medial cuneiform was clearly infected and in fact, the entire cuneiform itself was resected and some further what appeared to be infectious material and the residual second metatarsal was also resected. Having completed this, all nonviable-appearing tissue was removed with a rongeur, scalpel, and curette. Wound was again copiously irrigated. At this point, 50 vial of Neox Mumtaz was then poured directly into the wound to enhance healing and then a combination of gipv-kag-pif-near sutures with large Prolene were utilized to reapproximate the skin without causing too much tension. Sterile dressings were applied. Tourniquet was not used. The patient was awakened, taken to recovery room in stable condition. All final needle and sponge counts were correct. TRANSINT:[id number] Voice Confirmation ID: [id number] DOCUMENT ID: [id number] ELIAN CORBIN MD at 1341 CC: [id number] DICTATION DATE: 11/26/172226 CRUCIBLE FURNACE TENDER: 11/27/17 0850 [facility] 11/27/17 [place] [address]
[~2017-11-26 11:00] MED LIST changes: -DOXYCYCLINE HY100 M2 PO
[2017-11-26 12:12] VITALS: BP 188/74; BMI 29.2
[2017-11-26] MEDS ORDERED: HYDROCODONE-APA1 TAB PO (17:04)
[2017-11-26] MEDS ORDERED: DOXYCYCLINE HY100 M2 PO (17:05)
[2017-11-27 00:41] VITALS: BP 158/59
[2017-11-27 02:03] VITALS: Ht 162.6 cm; Wt 76.8 kg
[2017-11-27 05:01] VITALS: BP 130/67
[2017-11-27 09:10] VITALS: BP 169/71
== END 2017-11-27 12:00 | disposition home health service (06) ==
LOC: D.OPS 11:00 → D.PAN 13:00 → D.OPS 13:00 → D.PAN 13:45 → D.OPS 13:45 → D.PAN 15:40 → D.MS 21:55 → D.OPS 11-27 12:00
PROVIDERS: Anesthesiology
DX: M86.8X7 Other osteomyelitis, ankle and foot (principal); Z01.812 Encounter for preprocedural laboratory examination

== ENCOUNTER 2017-12-05 11:20 | Outpatient (CLI) | payer MEDICARE ==
[2017-11-27 02:03] VITALS: BMI 29.0
[~2017-12-05 11:20] MED LIST changes: +DOXYCYCLINE HY100 M2 PO
== END 2017-12-05 23:59 | disposition home or self-care (01) ==
LOC: D.US 11:20
DX: I73.9 Peripheral vascular disease, unspecified (principal)

== ENCOUNTER → 2017-12-17 13:02 | Outpatient (CLI) | payer MEDICARE ==
[2017-11-27 02:03] VITALS: BMI 29.0
== END | disposition home or self-care (01) ==
LOC: D.US 12-14 13:30
DX: I73.9 Peripheral vascular disease, unspecified (principal)

== ENCOUNTER 2017-12-18 14:01 | Emergency (ER) | payer MEDICARE ==
[2017-11-27 02:03] VITALS: BMI 29.0
[2017-12-18 15:15] LABS: BASOPHILS 0.5 % (0-2); EOSINOPHILS 4.5 % (0-7); HEMATOCRIT 43.8 % (36.0-48.0); HEMOGLOBIN 14.4 g/dL (12-16); IMMATURE GRANULOCYTES 1.2 % (0-5); MCH 29.9 pg (26.0-34.0); MCHC 32.9 g/dL (31.0-37.0); MCV 90.9 fL (80.0-100.0); MEAN PLATELET VOLUME 10.9 fL (7.4-10.4); NEUTROPHILS 57.8 % (40-80); PLATELET COUNT 252 10x3/uL (130-400); RBC 4.82 10x6/uL (4.00-5.40); RDW 12.9 % (11.5-14.5); WBC 10.4 10x3/uL (4.8-10.8)
[2017-12-18 15:39] LABS: ALBUMIN 3.6 g/dL (3.4-5.0); ALKALINE PHOSPHATASE 75 U/L (46-116); ALT (SGPT) 17 U/L (10-68); BILIRUBIN - TOTAL 0.25 mg/dL (0.2-1.3); CALC OSMOLALITY 282 mosm/kg (275-300); CALCIUM 9.5 mg/dL (8.5-10.1); CHLORIDE - SERUM 103 mmol/L (98-107); CREATININE - SERUM 0.7 mg/dL (0.6-1.3); GLUCOSE 95 mg/dL (74-106); POTASSIUM - SERUM 3.7 mmol/L (3.5-5.1); SODIUM 141 mmol/L (136-145); UREA NITROGEN 19 mg/dL (7-18); eGFR NON AFRICAN AMERICAN 88 mL/min (90-120)
[2017-12-18 15:50] LABS: CHOL - HDL RATIO 5.5 ratio (2.3-4.1); CHOLESTEROL, TOTAL 263 mg/dL (0-200); CKMB 1.6 U/L (0.0-3.6); CREATINE KINASE 46 UL (21-215); HDL CHOLESTEROL 48 mg/dL (32-96); LDL CHOLESTEROL 169 mg/dL (0-100); LDL-HDL RATIO 3.5 ratio (1.5-3.5); TRIGLYCERIDE 230 mg/dL (30-200)
[2017-12-18 15:51] LABS: TROPONIN-I < 0.017 ng/mL (0.000-0.060)
== END 2017-12-18 16:55 | disposition home or self-care (01) ==
LOC: D.ER 14:01
PROVIDERS: Family Medicine
DX: R07.9 Chest pain, unspecified (principal); E11.9 Type 2 diabetes mellitus without complications; E03.9 Hypothyroidism, unspecified; M32.9 Systemic lupus erythematosus, unspecified

== ENCOUNTER 2018-02-04 08:03 | Outpatient (CLI) | payer MEDICARE ==
[~2018-02-04] VITALS: Ht 162.6 cm; Wt 79.5 kg
--- NOTE | ~2018-02-04 | OP ---
PATIENT NAME: STEPHANIE TRUJILLO MEDICAL RECORD: [id number] :49 LOCATION:D.M2 D.1 ADMISSION DATE: SURGEON: ELYSIA VERA MD DATE OF OPERATION: 02/04/2018 PROCEDURES: 1. Aortofemoral runoff. 2. Abdominal aortography. INDICATIONS: Claudication, peripheral vascular disease, nonhealing ulcers. PROCEDURE IN DETAIL: After informed consent was obtained and after a detailed description of the risks, benefits as well as alternative therapies, the patient elected to proceed with angiogram and angioplasty. The right femoral area was prepped and draped in normal sterile fashion. The right femoral artery was cannulated via modified Seldinger technique with placement of 6-Bulgarian sheath. All catheters exchanged through this sheath. FINDINGS: Abdominal aortography was performed. The catheter was pulled down for aortofemoral runoff. Abdominal aortography reveals renal artery stenosis on the right that is significant. Otherwise, no abdominal aortic disease. RIGHT LEG: A. Iliacs: The common internal and external iliacs have moderate irregularities but no flow-limiting stenosis. B. Femoral system: The common and deep femoral are patent. Superficial femoral has multiple areas of high-grade stenosis greater than 90%. C. Popliteal and infrapopliteal vessels, popliteal is patent. The anterior tibial and posterior tibial are both totally occluded. There is single-vessel runoff through the peroneal that is diffusely diseased. LEFT LEG: A. Iliac: The common internal and external iliacs have mild irregularities but no flow-limiting stenosis. B. Femoral system: The common and deep femoral are patent. Superficial femoral was totally occluded throughout its entire course, it reconstitutes distally off of collaterals from the deep femoral system. The popliteal appears to be totally occluded as well, appears to be a total occlusion of all infrapopliteal structures, trickled flow through collaterals through the peroneal. OVERALL IMPRESSION: Severe peripheral vascular disease is present bilaterally, left greater than right. No surgical or interventional options for the left leg. Right leg is amenable to transcatheter revascularization of the SFA as well. Due to her out of control hypertension, renal artery stenosis is present on the right and very well may be contributing to the hypertension. This is amenable to transcatheter revascularization. TRANSINT:[id number] Voice Confirmation ID: [id number] DOCUMENT ID: [id number] OPERATIVE REPORT [id number] STEPHANIE TRUJILLO, ELYSIA LARA at 1713 CC: [id number] DICTATION DATE: 02/04/18 1035 ENROLLMENT MANAGEMENT MANAGER: 02/04/18 1133 REG [facility] [address] [place] [address]
--- NOTE | ~2018-02-04 | HEMODYNAMI ---
PATIENT:STEPHANIE TRUJILLO MEDICAL RECORD: [id number] : 49 LOCATION:DJULITO ADMISSION DATE: 02/04/18 Generatedon:02/04/201810:36 Patient name: STEPHANIE TRUJILLO Patient #: [id number] SSN: : 1945 Date of study: 02/04/2018 Page: Of Hemodynamic Procedure Report Patient Data Patient Demographics Procedure consent was obtained First Name: STEPHANIE Gender: Female Last Name: CASSANDRA : 1945 Middle Initial: R Age: 72 year(s) Patient #: [id number] Race: Unknown Additional ID: [id number] Contact details [address]: [address] [place] [address] State: [place] City: [place] Zip code: [address] Past Medical History Allergies Allergen Reaction Date Comments Reported Statins 02/04/2018 Admission Admission Data Admission Date: 02/04/2018 Admission Time: 8:03 Procedure Procedure Types Cath Procedure Diagnostic Procedure LHC LHC w/Coronaries Sedation Charges Moderate Sedation up to 15 minutes PCI Procedure Coronary Stent Coronary Stent Initial Peripheral Cath Diagnostic Procedure Cath Peripheral Qgopv-Quokzxy-Jrx-Off Procedure Description Procedure Date Procedure Date: 02/04/2018 Procedure Start Time: 10:12 Procedure End Time: 10:35 Procedure Staff Name Function Christiano Hough MD Performing Physician Mega Maria RN Nurse Kandace Coley RT Monitor Lexi Interiano RT Scrub Procedure Data Cath Procedure Fluoroscopy Diagnostic fluoroscopy Total fluoroscopy Time: 2.1 time: 2.1 min min Diagnostic fluoroscopy Total fluoroscopy dose: 661 dose: 661 mGy mGy Contrast Material Contrast Material Type Amount (ml) Isovue 300 103 Entry Location Entry Primary Successful Side Size Upsize Upsize Entry Closure Succes sful Closure Location (Fr) 1 (Fr) 2 (Fr) Remarks Device Remarks Femoral Right 5 Fr 6 Fr Exoseal artery Short Estimated blood loss: 10 ml Diagnostic catheters Device Type Used For End Catheter Placement MULTIPACK Pigtail 5 Fr Procedure catheter MULTIPACK JL 4.0 5Fr Procedure catheter MULTIPACK 3DRC 5Fr Procedure catheter Procedure Complications No complications Procedure Medications Medication Administration Route Dosage Oxygen NC 2 l/min Lidocaine 2% added to field 20 Heparin Flush Bag added to field 2 bags (1000units/500ml NS) 0.9% NaCl I.V. 100 ml/hr Versed I.V. 1 mg Fentanyl I.V. 50 mcg Versed I.V. 1 mg Fentanyl I.V. 50 mcg Fentanyl I.V. 50 mcg Heparin Bolus I.V. 4000 units Integrilin (Bolus I.V. 7.3 ml 2mg/ml) Plavix P.O. 600 mg Hemodynamics Rest Pre Cath Intra NCS Post Cath Vital Signs Time Heart Resp SPO2 etCO2 NIBP (mmHg) Rhythm Pain Sedation Rate (ipm) (%) (mmHg) Status Level (bpm) 9:52:05 72 17 99 32.2 Measuring NSR 0 (11) 10(A) , No pain 9:52:34 74 12 99 32.2 219/95(157) NSR 0 (11) 10(A) , No pain 9:57:06 75 17 97 31.5 209/90(162) NSR 0 (11) 10(A) , No pain 10:01:38 70 15 94 38.2 178/80(131) NSR 0 (11) 10(A) , No pain 10:06:07 68 16 96 34.5 153/66(120) NSR 0 (11) 9(A) , No pain 10:15:36 73 15 96 42.7 169/77(118) NSR 0 (11) 9(A) , No pain 10:19:58 75 16 98 30.7 170/77(135) NSR 0 (11) 9(A) , No pain 10:24:24 74 15 98 21.7 164/70(113) NSR 0 (11) 9(A) , No pain 10:29:54 84 9 99 37.5 233/100(174) NSR 0 (11) 9(A) , No pain 10:34:35 81 10 96 37.5 250/112(164) NSR 0 (11) 10(A) , No pain Medications Time Medication Route Dose Verified Delivered Reason Notes Effectiveness by by 9:52:01 Oxygen NC 2 Christiano Ayoub used for l/min Gianluca Maria hand scraper 9:52:08 Lidocaine 2% added 20ml Christiano Alvarado for local to vial Gianluca Hough MD anesthetic field 9:52:16 Heparin Flush added 2 Christiano Christiano used for Bag to bags Gianluca Hough MD procedure (1000units/500ml field NS) 9:52:24 0.9% NaCl I.V. 100 Christiano Hodgsonie Per physician ml/hr Gianluca Maria RN 10:01:40 Versed I.V. 1 mg Christiano Ayoub for sedation Gianluca Maria RN 10:01:45 Fentanyl I.V. 50 Christiano Buffie for sedation mcg Gianluca Maria RN 10:06:50 Versed I.V. 1 mg Christiano Hodgsonie for sedation Gianluca Maria RN 10:06:53 Fentanyl I.V. 50 Christiano Hodgsonie for sedation mcg Gianluca Maria RN 10:12:20 Fentanyl I.V. 50 Christiano Hodgsonie for sedation mcg Gianluca Maria RN 10:19:04 Heparin Bolus I.V. 4000 Christiano Ayoub for verifi ed units Gianluca Maria RN anticoagulation with dr hough 10:20:59 Integrilin I.V. 7.3 Christiano Ayoub for Wasted (Bolus 2mg/ml) ml Gianluca Maria RN antiplatelet 2.7 ml therapy of vial 10:34:43 Plavix P.O. 600 Christiano Ayoub for mg Gianluca Maria RN antiplatelet therapy Procedure Log Time Note 9:17:11 Time tracking: Regular hours (M-F 7:00 - 5:00) 9:17:15 Plan of Care:Hemodynamics will remain stable., Cardiac rhythm will remain stable., Comfort level will be maintained., Respiratory function will remain adequate., Patient/ family verbilizes understanding of procedure., Procedure tolerated without complication., Recovers from procedure without complications.. 9:33:56 Lexi Counts RT(R) sent for patient. Start room use. 9:50:10 Patient received from Pre/Post Procedure Room to CCL 2 Alert and oriented. Tansferred to table in Supine position. 9:50:11 Warm blankets applied, and ibeth hugger turned on for patient comfort. 9:50:11 Correct patient and procedure confirmed by team. 9:50:13 Signed procedure consent form obtained from patient. 9:50:13 ECG and BP/O2 sat monitors applied to patient. 9:50:15 Vital chart was started 9:50:18 Rhythm: sinus rhythm 9:50:20 Full Disclosure recording started 9:50:27 H&P Date Dictated: 01/16/2018 Within 30 days and on chart., H&P Addendum completed by physician on day of procedure. (MUST COMPLETE FOR ALL OUTPATIENTS). 9:50:29 Pre-procedure instructions explained to patient. 9:50:29 Pre-op teaching completed and patient verbalized understanding. 9:50:33 Family unavailable. 9:50:35 Patient NPO since Midnight. 9:50:46 Patient allergic to Statins 9:50:49 Is the patient allergic to Iodine/contrast media? No. 9:50:53 Is patient on blood thinner?No 9:50:54 Patient diabetic? Yes. 9:50:59 If diabetic: On Metformin? No 9:51:02 Previous problem with sedation/anesthesia? No ? 9:51:03 Snore? No 9:51:04 Sleep apnea? No 9:51:05 Deviated septum? No 9:51:06 Opens mouth fully? Yes 9:51:06 Sticks out tongue? Yes 9:51:08 Airway obstruction? No ? 9:51:10 Dentures? No ? 9:51:47 Pre procedure: right dorsailis pedis pulse 1+ Palpable, but thready & weak; easily obliterated 9:52:01 Oxygen 2 l/min NC was administered by Mega Maria RN; used for procedure; 9:52:07 PATIENT HAS HX OF PSEUDOANEURYSM IN RFA. 9:52:08 Lidocaine 2% 20ml vial added to field was administered by Christiano Hough MD; for local anesthetic; 9:52:16 Heparin Flush Bag (1000units/500ml NS) 2 bags added to field was administered by Christiano Hough MD; used for procedure; 9:52:24 0.9% NaCl 100 ml/hr I.V. was administered by Mega Maria RN; Per physician; 9:52:36 PATIENT HAS OPEN WOUND THAT IS DRESSED AN WRAPPED ON LEFT FOOT. 9:53:14 PATIENT REQUESTS NO RADIAL. NEEDS USE OF ARM FOR GETTING IN AND OUT OF WHEELCHAIR. 9:53:17 Patient pain scale 0/10 ?. 9:53:23 IV patent on arrival in right forearm with 0.9% NaCl at KVO. 9:53:25 Lab results completed and on chart. 9:53:30 Bilateral groins area was prepped with chlora-prep and draped in sterile fashion 9:53:31 Alarms reviewed by R. N. 9:53:31 Sharps counted by scrub and verified by R.N. 9:53:36 Use device set Femoral Dx 9:53:37 ACIST Syringe (75862) opened to sterile field. 9:53:37 Bag Decanter (2002S) opened to sterile field. 9:53:38 Medline Cath Pack ([id number]) opened to sterile field. 9:53:38 DIAGNOSTIC WIRE .035 260cm J wire (010592) opened to sterile field. 9:53:40 ACIST Hand Control (93972) opened to sterile field. 9:53:41 ACIST Manifold (87378) opened to sterile field. 9:53:41 DIAGNOSTIC Multipack 5Fr catheter set (MR5836) opened to sterile field. 9:53:42 Tegaderm 4 x 4 (1626W) opened to sterile field. 9:53:42 PERCUTANEOUS ENTRY 19GA needle opened to sterile field. 9:53:43 SHEATH Prelude 5Fr 0.035 (INV-8U-53-035) opened to sterile field. 9:57:47 Final Timeout: patient, procedure, and site verified with staff and physician. All members of the team are in agreement. 9:57:49 Bilateral groins site verified by team. 9:57:53 Physical assessment completed. ASA score P 2 - A patient with mild systemic disease as per Christiano Hough MD. 9:57:57 Sedation plan: IV Moderate Sedation Medication:Versed, Fentanyl 10:01:40 Versed 1 mg I.V. was administered by Mega Maria RN; for sedation; 10:01:45 Fentanyl 50 mcg I.V. was administered by Mega Maria RN; for sedation; 10:06:50 Versed 1 mg I.V. was administered by Mega Maria RN; for sedation; 10:06:53 Fentanyl 50 mcg I.V. was administered by Mega Maria RN; for sedation; 10:10:59 Zero performed for pressure channel P1 10:11:10 Zero performed for pressure channel P1 10:12:01 Procedure started. 10:12:16 Local anesthetic to right femoral artery with Lidocaine 2% by Christiano Hough MD.INITIAL ACCESS ONLY 10:12:20 Fentanyl 50 mcg I.V. was administered by Mega Maria RN; for sedation; 10:12:25 A 5 Fr sheath was inserted into the Right Femoral artery 10:12:32 A MULTIPACK Pigtail 5 Fr catheter was advanced over the wire and used for Procedure. 10:13:12 LV gram done using GARCIA 10:13:15 Injector settings: Ml/sec: 10, Volume: 20, 10:14:08 Zero performed for pressure channel P1 10:14:34 EF : 60 % 10:14:42 Abdominal angiogram w/ runoff was performed. 10:14:56 Left leg runoff performed. 10:15:21 Right leg runoff performed. 10:15:47 Zero performed for pressure channel P1 10:15:59 Zero performed for pressure channel P1 10:16:16 Catheter exchanged over wire. 10:16:24 A MULTIPACK JL 4.0 5Fr catheter was advanced over the wire and used for Procedure. 10:17:24 LCA angiography performed. 10:17:30 Catheter exchanged over wire. 10:17:46 A MULTIPACK 3DRC 5Fr catheter was advanced over the wire and used for Procedure. 10:18:15 RCA angiography performed. 10:18:29 Catheter removed. 10:18:39 SHEATH 6FR [place] (LRC571) opened to sterile field. 10:18:44 CHOICE PT Extra Support 182cm wire ([id number]) opened to sterile field. 10:18:49 INFLATOR Merit BasixCompak (PT3685) opened to sterile field. 10:19:02 Sheath upsized to a 6 Fr Short. 10:19:04 Heparin Bolus 4000 units I.V. was administered by Mega Maria RN; for anticoagulation; verified with dr hough 10:19:53 GUIDE 6FR XBLAD 3.5 catheter ([id number]) opened to sterile field. 10:20:07 6 Fr XBLAD 3.5 guide catheter was inserted over the wire 10:20:54 CHOICE ES 182 wire advanced. 10:20:56 Wire advanced across lesion. 10:20:59 Integrilin (Bolus 2mg/ml) 7.3 ml I.V. was administered by Mega Maria RN; for antiplatelet therapy; Wasted 2.7 ml of vial 10:21:54 Place stent Inflation Number: 1 A RONI RX 2.5 x 12 stent ([id number]) was prepped and advanced across the Prox LAD. The stent was deployed at 15 KATERIN for 0:10 (min:sec). 10:22:05 Stent catheter was removed intact over wire. 10:22:06 Wire removed. 10:22:06 Guide catheter removed. 10:22:16 EXOSEAL 6Fr (EX600) opened to sterile field. 10:22:32 Sheath removed intact; hemostasis achieved with Exoseal to the Right Femoral artery. 10:22:48 Procedure ended.(Physican Out) 10:23:45 Fluoroscopy time 02.10 minutes. 10:23:48 Fluoroscopy dose: 661 mGy 10:23:48 Flurop Dose total: 661 10::54 Contrast amount:Isovue 300 103ml. 10:23:55 Sharps counted by scrub and verified by R.N. 10:23:59 Post-op/insertion site Right Femoral artery dressed using a 4 x 4 and Tegaderm. 10:24:02 Post right femoral artery:stable, soft, clean and dry 10:24:14 Post-procedure physical assessment completed. ASA score P 2 - A patient with mild systemic disease as per Christiano Hough MD. 10:24:17 Post procedure rhythm: unchanged. 10:24:20 Estimated blood loss: 10 ml 10:24:30 Post procedure instruction explained to patient.Patient verbalizes understanding. 10:24:31 Patient needs reinforcement of post procedure teaching. 10:24:58 Procedure type changed to Cath procedure, Diagnostic procedure, LHC, LHC w/Coronaries, Sedation Charges, Moderate Sedation up to 15 minutes, PCI procedure, Coronary Stent, Coronary Stent Initial, Peripheral Cath Diagnostic Procedure, Cath Peripheral, Czodw-Lqlziys-Nqa-Off 10:28:24 Procedure and supply charges have been captured, reviewed, submitted and are correct. 10:28:26 Procedure Complication : No complications 10:34:30 FEMSTOP Gold (H03181) opened to sterile field. 10:34:43 Plavix 600 mg P.O. was administered by Mega Maria RN; for antiplatelet therapy; 10:35:20 FEMSTOP PLACED OVER THE [facility] FEMORAL ARTERY AT [facility]. BLOOD PRESURE 250/112 10:35:22 Vital chart was stopped 10:35:23 See physician's report for complete and final results. 10:35:25 Report given to Pre/Post Procedure Room. 10:35:28 Patient transfered to Pre/Post Procedure Room with Bed. 10:35:30 Procedure ended. 10:35:30 Full Disclosure recording stopped 10:35:33 End room use (Document Last) Intervention Summary Intervention Notes Time ActionType Lesion and Equipment Used Action# Pressure Duration Attributes 10:21:54 Place stent Prox LAD RONI RX 2.5 x 1 15 00:10 12 stent ([id number]) Device Usage Item Name Manufacture Quantity Catalog Number Hospital Part Current Minimal Lot# / Charge Number Stock Stock Serial# Code ACIST Syringe Acist 1 30275 148876 807028 [id number] 20 (83659) Medical Systems CoffeeTable Bag Decanter Microtek 1 2001S 208452 57359 669737 5 (2001S) Medical Inc. Medline Cath Cardinal 1 [id number] 538784 70108 230900 5 Pack Health ([id number]) DIAGNOSTIC WIRE [facility] 1 934821 669059 680302 122420 30 .035 260cm J wire (726124) ACIST Hand Acist 1 36572 747300 768282 847291 5 Control (99715) Medical Systems Inc ACIST Manifold Acist 1 08724 645214 764618 007842 5 (25864) Medical Systems Inc DIAGNOSTIC Cardinal 1 NN7689 198521 63690 049405 30 Multipack 5Fr Health catheter set (IY8316) Tegaderm 4 x 4 3M 1 1626W 321022 427266 999977 5 (1626W) PERCUTANEOUS Cook Medical 1 Y12830 450281 862792 5 ENTRY 19GA needle SHEATH Prelude Merit 1 QDB-7B-47-035 034284 641193 401594 5 5Fr 0.035 Medical (OHV-9N-94-035) MULTIPACK Cardinal 1 062905 5 Pigtail 5 Fr Health catheter MULTIPACK JL Cardinal 1 185170 5 4.0 5Fr Health catheter MULTIPACK 3DRC Cardinal 1 396124 5 5Fr catheter Health SHEATH 6FR Terumo 1 GGZ112 264043 840806 842624 40 [place] (PMJ929) CHOICE PT Extra Parrott 1 [id number] 413323 341848 757591 5 Support 182cm Scientific wire ([id number]) INFLATOR Merit Merit 1 SV4749 567686 072695 804198 15 BasixSteward Health Care SystemGlobal Fitness Media Medical (BG0879) GUIDE 6FR XBLAD Cardinal 1 [id number] 573689 006033 036862 10 3.5 catheter Health (83803514) RONI RX 2.5 x Medtronic 1 [id number] 925614 2200636 492541 5 [id number] 12 stent ([id number]) EXOSEAL 6Fr Cardinal 1 EX600 004352 900767 614296 10 (EX600) Health FEMSTOP Gold St Zach 1 H90575 553918 134278 052287 5 (P10432) Signature Audit [place] Stage Time Signature Unsigned Intra-Procedure 02/04/2018 Kandace Coley 10:36:48 AM RT(R) Signatures Monitor : Kandace Coley Signature : RT Date : Time : [id number] [place] [address]
--- NOTE | ~2018-02-04 | OP ---
PATIENT NAME: STEPHANIE TRUJILLO MEDICAL RECORD: [id number] :49 LOCATION:D.M2 D.1 ADMISSION DATE: SURGEON: ELYSIA VERA MD DATE OF OPERATION: 02/04/2018 PROCEDURES: 1. PTCA and stent to LAD. 2. Left heart catheterization. 3. Selective coronary angiography. 4. Left ventriculogram. INDICATIONS: Angina and coronary artery disease. PROCEDURE IN DETAIL: After informed consent was obtained and after detailed explanation of risks, benefits as well as alternative therapies, the patient elected to proceed with angiogram and angioplasty. The right femoral area had a preexisting sheath from aortofemoral runoff. All catheters were exchanged for sheath. FINDINGS: The left ventriculogram was performed with standard 30-degree GARCIA view reveals good cardiac wall motion throughout all segments. Overall ejection fraction estimated 55% to 60%. SELECTIVE CORONARY ANGIOGRAPHY: 1. Left main is with no significant angiographic disease. 2. Left anterior descending has 90% stenosis proximally. 3. The left circumflex has wazleizi-tm-lwnfss diffuse disease throughout the mid vessel. The distal vessel is small and nondominant. 4. Right coronary. There is 90% to 95% stenosis distally in the right coronary. PTCA STENT OF THE LAD: The stent used was a 2.5 x 12 mm Yang. Result was 0% residual stenosis. OVERALL IMPRESSION: Successful percutaneous transluminal coronary angioplasty and stent of the left anterior descending going from 90% initial stenosis to 0% residual. PLAN: PTCA and stent of the RCA and right renal in the near future. TRANSINT:[id number] Voice Confirmation ID: [id number] DOCUMENT ID: [id number] ELYSIA VERA MD at 1713 CC: [id number] DICTATION DATE: 02/04/18 1035 CHASER HELPER: 02/04/18 1135 REG [facility] [address] [place] [address]
--- NOTE | ~2018-02-04 | OP ---
PATIENT NAME: STEPHANIE TRUJILLO MEDICAL RECORD: [id number] :49 LOCATION:D.CAT ADMISSION DATE: SURGEON: ELYSIA VERA MD DATE OF OPERATION: 02/05/2018 PROCEDURES: 1. PTCA stent RCA. 2. Selective coronary angiography. 3. Bilateral selective renal angiography. INDICATION: Angina, coronary artery disease, renal artery stenosis. DESCRIPTION OF PROCEDURE: After informed consent was obtained and after detailed explanation of risks, benefits as well as alternative therapies, the patient elected to proceed with angiogram and angioplasty. The left femoral area was prepped and draped in normal sterile fashion. Left femoral artery was cannulated via modified Seldinger technique with placement of 6-Monegasque sheath. All catheters exchanged through this sheath. FINDINGS: The right coronary has a 90% to 95% stenosis distally. It was addressed with a 2.5 x 15 mm Yang stent. Result was 0% residual stenosis. On aortofemoral runoff, the renal artery appeared to be stenosed; however, with selective renal angiography, there was no significant stenosis, no pressure damping at the ostium of either renal artery. OVERALL IMPRESSION: Successful percutaneous transluminal coronary angioplasty stent of the right coronary artery going from 90% to 95% initial stenosis to 0% residual stenosis. TRANSINT:[id number] Voice Confirmation ID: [id number] DOCUMENT ID: [id number] ELYSIA VERA MD at 1207 CC: [id number] DICTATION DATE: 02/05/18 0853 CAGE CLERK: 02/05/18 1241 DEP CLI 02/05/18 [place] [id number]
--- NOTE | ~2018-02-04 | HEMODYNAMI ---
PATIENT:STEPHANIE TRUJILLO MEDICAL RECORD: [id number] : 49 LOCATION:[facility] D[facility] ADMISSION DATE: 02/04/18 Generatedon:02/05/20188:57 Patient name: STEPHANIE TRUJILLO Patient #: [id number] SSN: : 1945 Date of study: 02/05/2018 Page: Of Hemodynamic Procedure Report Patient Data Patient Demographics Procedure consent was obtained First Name: STEPHANIE Gender: Female Last Name: CASSANDRA : 1945 [facility] Initial: R Age: 72 year(s) Patient #: [id number] Race: Unknown Additional ID: [id number] Contact details [address]: [address] [place] [address] State: [place] City: [place] Zip code: [address] Past Medical History Allergies Allergen Reaction Date Comments Reported Statins 02/04/2018 Other allergy 02/05/2018 statins Admission Admission Data Admission Date: 02/04/2018 Admission Time: 8:03 Admit Source: Other Room #: D[facility] Lab Results Lab Result Date: 02/04/2018 Lab Result Time: 8:40 Biochemistry Name Units Result Min Max BUN mg/dl 14 --(--*-)-- 7 18 Creatinine mg/dl 0.5 -*(----)-- 0.6 1.3 CBC Name Units Result Min Max Hematocrit % 43.1 --(*---)-- 42 54 Hemoglobin g/dl 13.9 --(*---)-- 13.5 17.5 Procedure Procedure Types Cath Procedure Diagnostic Procedure LHC PCI Procedure Coronary Stent Coronary Stent Initial Peripheral Cath Diagnostic Procedure Abd/Extremity Renal Bilat Renal Arteriogram Procedure Description Procedure Date Procedure Date: 02/05/2018 Procedure Start Time: 8:38 Procedure End Time: 8:49 Procedure Staff Name Function Christiano Hough MD Performing Physician Garth Dawn RT Monitor Jose Carbone RN Nurse Kandace Coley RT Scrub Procedure Data Cath Procedure Fluoroscopy Diagnostic fluoroscopy Total fluoroscopy Time: 2.6 time: 2.6 min min Diagnostic fluoroscopy Total fluoroscopy dose: 325 dose: 325 mGy mGy Contrast Material Contrast Material Type Amount (ml) Isovue 370 43 Entry Location Entry Primary Successful Side Size Upsize Upsize Entry Closure Succes sful Closure Location (Fr) 1 (Fr) 2 (Fr) Remarks Device Remarks Femoral Left 6 Fr Exoseal artery Short Estimated blood loss: 10 ml Procedure Complications No complications Procedure Medications Medication Administration Route Dosage 0.9% NaCl I.V. 100 ml/hr Oxygen etCO2 Nasal cannula 2 l/min Heparin Flush Bag added to field 2 bags (1000units/500ml NS) Lidocaine 2% added to field 20 Versed I.V. 1 mg Fentanyl I.V. 50 mcg Fentanyl I.V. 50 mcg Versed I.V. 1 mg Heparin Bolus I.V. 4000 units Hemodynamics Rest HGB: 13.9 (g/dl) Heart Rate: 60 (bpm) Snapshots Pre Cath Intra NCS Post Cath Vital Signs Time Heart Resp SPO2 etCO2 NIBP (mmHg) Rhythm Pain Sedation Rate (ipm) (%) (mmHg) Status Level (bpm) 8:21:12 70 19 100 33 205/89(152) NSR 0 (11) 10(A) , No pain 8:26:14 59 12 92 15.7 159/63(114) NSR 0 (11) 10(A) , No pain 8:31:09 58 12 96 39.8 139/61(112) NSR 0 (11) 10(A) , No pain 8:36:05 57 13 99 38.3 126/55(96) NSR 0 (11) 9(A) , No pain 8:42:01 59 15 97 36 129/53(88) NSR 0 (11) 9(A) , No pain 8:46:52 62 14 99 39.1 136/61(105) NSR 0 (11) 9(A) , No pain Medications Time Medication Route Dose Verified Delivered Reason Notes Effectiveness by by 8:23:00 0.9% NaCl I.V. 100 Jose Jose Per physician ml/hr Tona Carbone RN RN 8:23:10 Oxygen etCO2 2 Jose Jose Per physician Nasal l/min Tona Carbone cannula RN RN 8:23:24 Heparin Flush added 2 Jose Jose used for Bag to bags Tona Carbone procedure (1000units/500ml RN RN NS) 8:23:36 Lidocaine 2% added 20ml Jose Jose for local to vial Tona Carbone anesthetic RN RN 8:36:16 Versed I.V. 1 mg Jose Jose for sedation Tona Carbone RN RN 8:36:28 Fentanyl I.V. 50 Jose Jose for sedation mcg Tona Carbone RN RN 8:39:01 Fentanyl I.V. 50 Jose Jose for sedation mcg Tona Carbone RN RN 8:39:12 Versed I.V. 1 mg Jose Jose for sedation Tona aCrbone RN RN 8:40:48 Heparin Bolus I.V. 4000 Jose Jose for units Tona Carbone anticoagulation RN thermal engineer Log Time Note 7:45:41 Informed consent obtained and on chart 7:45:48 Admit Source: Other 7:46:23 Procedure type changed to Cath procedure, Diagnostic procedure, LHC, PCI procedure, Coronary Stent, Coronary Stent Initial, Peripheral Cath Diagnostic Procedure, Abd/Extremity, Renal, Bilat Renal Arteriogram 7:46:27 Time tracking: Regular hours (M-F 7:00 - 5:00) 7:46:31 Plan of Care:Hemodynamics will remain stable., Cardiac rhythm will remain stable., Comfort level will be maintained., Respiratory function will remain adequate., Patient/ family verbilizes understanding of procedure., Procedure tolerated without complication., Recovers from procedure without complications.. 7:46:38 H&P Date Dictated: 02/05/2018 Within 30 days and on chart.. 7:57:06 Kandace Coley RT(R) sent for patient. Start room use. 8:19:06 Vital chart was started 8:20:01 Patient received from Med II to CCL 1 Alert and oriented. Tansferred to table in Supine position. 8:20:13 Warm blankets applied, and ibeth hugger turned on for patient comfort. 8:20:19 Correct patient and procedure confirmed by team. 8:20:25 ECG and BP/O2 sat monitors applied to patient. 8:23:00 0.9% NaCl 100 ml/hr I.V. was administered by Jose Carbone RN; Per physician; 8:23:10 Oxygen 2 l/min etCO2 Nasal cannula was administered by Jose Carbone RN; Per physician; 8:23:24 Heparin Flush Bag (1000units/500ml NS) 2 bags added to field was administered by Jose Carbone RN; used for procedure; 8::36 Lidocaine 2% 20ml vial added to field was administered by Jose Carbone RN; for local anesthetic; 8::32 Baseline sample Acquired. 8::35 Rhythm: sinus rhythm 8::36 Pre-op teaching completed and patient verbalized understanding. 8::36 Pre-procedure instructions explained to patient. 8::38 Family unavailable. 8::41 Patient NPO since Midnight. 8::55 Patient allergic to Other allergystatins 8::57 Is the patient allergic to Iodine/contrast media? No. 8::58 Is patient on blood thinner?Yes 8:27:01 ACC The patient was administered the following blood thiners within the last 24 hours: ACCPlavix 8:27:02 Patient diabetic? Yes. 8:27:03 If diabetic: On Metformin? No 8:27:07 Previous problem with sedation/anesthesia? No ? 8:27:08 Snore? No 8:27:10 Sleep apnea? No 8:27:12 Opens mouth fully? Yes 8:27:12 Deviated septum? No 8:27:13 Sticks out tongue? Yes 8:27:14 Airway obstruction? No ? 8:27:15 Dentures? No ? 8:27:27 Pre procedure: left dorsailis pedis pulse Doppler 8:27:31 Patient pain scale 0/10 ?. 8:27:38 IV patent on arrival in right wrist with 0.9% NaCl at O. 8:28:53 Lab Result : Hemoglobin 13.9 g/dl 8::53 Lab Result : Hematocrit 43.1 % 8::53 Lab Result : BUN 14 mg/dl 8::53 Lab Result : Creatinine 0.5 mg/dl 8::55 Lab results completed and on chart. 8:28:57 Left groin area was prepped with chlora-prep and draped in sterile fashion 8:28:58 Alarms reviewed by R. N. 8:28:59 Sharps counted by scrub and verified by R.N. 8:31:06 Physician paged 8:31:52 Zero performed for pressure channel P1 8:31:55 Zero performed for pressure channel P1 8:32:12 ACIST Syringe (65889) opened to sterile field. 8:32:13 Bag Decanter (2001S) opened to sterile field. 8:32:14 ACIST Manifold (58851) opened to sterile field. 8:32:14 ACIST Hand Control (11177) opened to sterile field. 8:32:15 Tegaderm 4 x 4 (1626W) opened to sterile field. 8:32:20 Medline Cath Pack ([id number]) opened to sterile field. 8:32:21 DIAGNOSTIC WIRE .035 260cm J wire (049908) opened to sterile field. 8:32:34 CHOICE PT Extra Support 182cm wire ([id number]) opened to sterile field. 8:32:48 SHEATH Prelude 6Fr 0.035 (NID-8J-08-035) opened to sterile field. 8:32:49 INFLATOR Merit BasixCompak (HS7102) opened to sterile field. 8:35:31 --------ALL STOP TIME OUT------ 8:35:31 Physician arrived 8:35:32 Final Timeout: patient, procedure, and site verified with staff and physician. All members of the team are in agreement. 8:35:33 Left groin site verified by team. 8:35:35 Physical assessment completed. ASA score P 2 - A patient with mild systemic disease as per Christiano Hough MD. 8:35:38 Sedation plan: IV Moderate Sedation Medication:Versed, Fentanyl 8:36:16 Versed 1 mg I.V. was administered by Jose Carbone RN; for sedation; 8:36:28 Fentanyl 50 mcg I.V. was administered by Jose Carbone RN; for sedation; 8:38:39 Full Disclosure recording started 8:38:39 Procedure started. 8:38:43 Local anesthetic to left femerol artery with Lidocaine 2% by Christiano Hough MD.INITIAL ACCESS ONLY 8:38:51 A 6 Fr Short sheath was inserted into the Left Femoral artery 8:39:01 Fentanyl 50 mcg I.V. was administered by Jose Carbone RN; for sedation; 8:39:12 Versed 1 mg I.V. was administered by Jose Carbone RN; for sedation; 8:39:38 GUIDE 6FR AR 2.0 SH catheter ([id number]) opened to sterile field. 8:39:45 6 Fr ar 2 sh guide catheter was inserted over the wire 8:40:31 choice pt es wire advanced. 8:40:34 Wire advanced across lesion. 8:40:48 Heparin Bolus 4000 units I.V. was administered by Jose Carbone RN; for anticoagulation; 8:42:32 Place stent Inflation Number: 1 A RONI RX 2.5 x 15 stent ([id number]) was prepped and advanced across the 1st RPL. The stent was deployed at 15 KATERIN for 0:10 (min:sec). 8:42:59 Inflation number: 2 The stent balloon was then re-inflated across the 1st RPL to 9 KATERIN for 0:10 (min:sec). 8:43:31 Stent catheter was removed intact over wire. 8:43:33 Wire removed. 8:43:34 Guide catheter removed. 8:43:44 Cordis 6Fr RDC guide catheter opened to sterile field. 8:43:51 6 Fr RDC guide catheter was inserted over the wire 8:44:01 Right renal angiography performed. 8:44:06 Left renal angiography performed. 8:45:56 Guide catheter removed. 8:46:34 EXOSEAL 6Fr (EX600) opened to sterile field. 8:46:41 Sheath removed intact; hemostasis achieved with Exoseal to the Left Femoral artery. 8:46:43 Procedure ended.(Physican Out) 8:48:06 Fluoroscopy time 02.60 minutes. 8:48:10 Fluoroscopy dose: 325 mGy 8:48:10 Flurop Dose total: 325 8:48:14 Contrast amount:Isovue 370 43ml. 8:48:15 Sharps counted by scrub and verified by R.N. 8:48:17 Insertion/operative site no bleeding no hematoma. 8:48:19 Post-op/insertion site Left Femoral artery dressed using a 4 x 4 and Tegaderm. 8:48:38 Post left femerol artery:stable, soft, clean and dry 8:48:39 Post Procedure Pulses reassessed and unchanged 8:48:43 Post-procedure physical assessment completed. ASA score P 2 - A patient with mild systemic disease as per Christiano Hough MD. 8:48:46 Post procedure rhythm: unchanged. 8:48:49 Estimated blood loss: 10 ml 8:48:50 Post procedure instruction explained to patient.Patient verbalizes understanding. 8:48:51 Procedure and supply charges have been captured, reviewed, submitted and are correct. 8:48:54 Procedure Complication : No complications 8:48:57 Vital chart was stopped 8:48:59 See physician's report for complete and final results. 8:49:02 Report given to Pre/Post Procedure Room. 8:49:04 Patient transfered to Pre/Post Procedure Room with Stretcher. 8:49:07 Full Disclosure recording stopped 8:49:07 Procedure ended. 8:49:09 End room use (Document Last) Intervention Summary Intervention Notes Time ActionType Lesion and Equipment Used Action# Pressure Duration Attributes 8:42:32 Place stent 1st RPL RONI RX 2.5 x 1 15 00:10 15 stent ([id number]) 8:42:59 Reinflate 1st RPL RONI RX 2.5 x 2 9 00:10 stent 15 stent balloon ([id number]) Device Usage Item Name Manufacture Quantity Catalog Number Hospital Part Current Minimal Lot# / Charge Number Stock Stock Serial# Code ACIST Syringe Acist 1 [id number] [id number] [id number] 197026 20 (91967) [employer] Bag Decanter Microtek 1 2002S 563190 36922 909733 5 (2002S) Medical Inc. ACIST Hand Acist 1 86644 939663 764712 812277 5 Control (74663) [employer] ACIST Manifold Acist 1 97038 127993 909477 951865 5 (65067) [employer] Tegaderm 4 x 4 3M 1 1626W 293031 587774 578942 5 (1626W) Medline Cath Cardinal 1 [id number] 435818 91698 109620 5 [facility] ([id number]) DIAGNOSTIC WIRE St Zach 1 463847 457694 913719 419187 30 .035 260cm J wire (733859) CHOICE PT Extra [place] 1 [id number] 105607 139003 525406 5 Support 182cm Scientific wire ([id number]) SHEATH Prelude Merit 1 [id number] 321214 8714812 391251 5 6Fr 0.035 Medical (XVF-7Q-13-035) INFLATOR Merit Merit 1 EX5773 406139 115775 671317 15 [facility] (ZU0282) GUIDE 6FR AR Medtronic 1 [id number] 542155 47474 431197 1 2.0 SH catheter ([id number]) RONI RX 2.5 x Medtronic 1 [id number] 576637 5814153 815550 5 [id number] 15 stent ([id number]) Cordis 6Fr RDC Cardinal 1 [id number] 480452 168452 638952 5 guide catheter Health EXOSEAL 6Fr Cardinal 1 EX600 735703 185239 178163 10 (EX600) Health Signature Audit [place] Stage Time Signature Unsigned Intra-Procedure 02/05/2018 Garth Dawn RT(R) 8:49:48 AM RT(R) 02/05/2018 8:54:36 AM Intra-Procedure 02/05/2018 Garth Dawn 8:57:12 AM RT(R) Signatures Monitor : Garth Dawn RT Signature : Date : Time : [place] [id number] EVENING [place], [place] [address]
--- NOTE | ~2018-02-04 | DS ---
PATIENT:STEPHANIE OMER :49 MEDICAL RECORD: [id number] DISCHARGE SUMMARY ADMISSION DATE: 02/04/18 DISCHARGE DATE: 02/05/18 DATE OF DISCHARGE: 02/05/2018. DIAGNOSES: 1. Unstable angina. 2. Coronary artery disease. 3. Peripheral vascular disease. 4. PTCA stent to RCA and LAD this admission. HOSPITAL COURSE: Ms. Omer presents with anginal symptomatology, found to have 2-vessel coronary artery disease of the RCA and LAD, underwent successful PTCA stent of both territories, was discharged home with the addition of aspirin and Plavix to her medical regimen. Follow up with [facility] in 1 month. TRANSINT:[id number] Voice Confirmation ID: [id number] DOCUMENT ID: [id number] ELYSIA VERA MD at 1207 CC: [id number] DICTATION DATE: 02/05/18 0852 SUPERVISOR SULFURIC [employer]ID PLANT: 02/05/18 1348 DEP CLI 02/05/[address] [address]
[2018-02-04] MEDS ORDERED: FEXOFENADINE HC60 MG PO (08:19)
[2018-02-04 08:47] VITALS: BP 218/81; BMI 30.1
[2018-02-04 09:02] LABS: BASOPHILS 0.8 % (0-2); EOSINOPHILS 4.1 % (0-7); HEMATOCRIT 43.1 % (36.0-48.0); HEMOGLOBIN 13.9 g/dL (12-16); IMMATURE GRANULOCYTES 1.3 % (0-5); LYMPHOCYTES 26.8 % (15-50); MCHC 32.3 g/dL (31.0-37.0); MCV 92.9 fL (80.0-100.0); MEAN PLATELET VOLUME 10.8 fL (7.4-10.4); MONOCYTES 13.1 % (2-11); NEUTROPHILS 53.9 % (40-80); PLATELET COUNT 264 10x3/uL (130-400); RBC 4.64 10x6/uL (4.00-5.40); RDW 13.3 % (11.5-14.5); WBC 10.5 10x3/uL (4.8-10.8)
[2018-02-04 09:07] LABS: CALC OSMOLALITY 283 mosm/kg (275-300); CALCIUM 9.2 mg/dL (8.5-10.1); CARBON DIOXIDE 28.6 mmol/L (21.0-32.0); CHLORIDE - SERUM 106 mmol/L (98-107); CREATININE - SERUM 0.5 mg/dL (0.6-1.3); GLUCOSE 128 mg/dL (74-106); POTASSIUM - SERUM 4.2 mmol/L (3.5-5.1); SODIUM 141 mmol/L (136-145); UREA NITROGEN 14 mg/dL (7-18); eGFR NON AFRICAN AMERICAN > 90 mL/min (90-120)
[2018-02-04 13:07] LABS: APPEARANCE CLEAR (CLEAR); BILIRUBIN NEGATIVE (NEGATIVE); COLOR YELLOW (YELLOW); GLUCOSE NEGATIVE (NEGATIVE); KETONE NEGATIVE (NEGATIVE); NITRITE POSITIVE (NEGATIVE); PROTEIN TRACE mg/dL (NEGATIVE); SPECIFIC GRAVITY 1.005 (1.005-1.020); UROBILINOGEN NORMAL (NORMAL)
[2018-02-04 13:08] LABS: BACTERIA MANY /hpf (NONE SEEN); EPITHELIAL CELLS RARE /hpf (0-5); MUCUS <1+ /lpf (NONE SEEN)
[2018-02-04 16:34] VITALS: BP 110/32
[2018-02-04 17:12] VITALS: BP 110/32; Ht 162.6 cm; Wt 79.5 kg
[2018-02-04 19:59] VITALS: BP 121/38
[2018-02-05 01:09] VITALS: BP 104/44
[2018-02-05 06:05] VITALS: BP 133/46
[2018-02-05 08:07] LABS: BASOPHILS 0.4 % (0-2); EOSINOPHILS 3.9 % (0-7); HEMATOCRIT 43.1 % (36.0-48.0); IMMATURE GRANULOCYTES 0.8 % (0-5); LYMPHOCYTES 24.9 % (15-50); MCHC 32.5 g/dL (31.0-37.0); MCV 92.5 fL (80.0-100.0); MEAN PLATELET VOLUME 10.6 fL (7.4-10.4); MONOCYTES 11.8 % (2-11); NEUTROPHILS 58.2 % (40-80); PLATELET COUNT 218 10x3/uL (130-400); RBC 4.66 10x6/uL (4.00-5.40); RDW 13.2 % (11.5-14.5); WBC 9.7 10x3/uL (4.8-10.8)
[2018-02-05 08:17] LABS: CALC OSMOLALITY 283 mosm/kg (275-300); CALCIUM 8.9 mg/dL (8.5-10.1); CARBON DIOXIDE 29.7 mmol/L (21.0-32.0); CHLORIDE - SERUM 107 mmol/L (98-107); CREATININE - SERUM 0.7 mg/dL (0.6-1.3); GLUCOSE 61 mg/dL (74-106); POTASSIUM - SERUM 3.7 mmol/L (3.5-5.1); SODIUM 143 mmol/L (136-145); UREA NITROGEN 15 mg/dL (7-18); eGFR NON AFRICAN AMERICAN 88 mL/min (90-120)
[2018-02-05] MEDS ORDERED: BAYER CHEWABLE81 MG PO (09:10)
[2018-02-05] MEDS ORDERED: PLAVIX75 MG PO (09:10)
== END 2018-02-05 12:41 | disposition home or self-care (01) ==
LOC: D.CATH 08:03 → D.M2 16:10 → D.CLR 02-05 08:59 → D.CATH 02-05 12:41
PROVIDERS: Internal Medicine Interventional Cardiology
DX: I25.110 Atherosclerotic heart disease of native coronary artery with unstable angina pectoris (principal); I70.1 Atherosclerosis of renal artery; I10 Essential (primary) hypertension; I70.249 Atherosclerosis of native arteries of left leg with ulceration of unspecified site; I70.239 Atherosclerosis of native arteries of right leg with ulceration of unspecified site; I70.92 Chronic total occlusion of artery of the extremities; Z01.812 Encounter for preprocedural laboratory examination
CPT/HCPCS: 93458; 36252; C9600 ×2

== ENCOUNTER → 2018-02-09 10:57 | Outpatient (CLI) | payer MEDICARE ==
[2018-02-04 17:12] VITALS: BMI 30.1
[~2018-02-09 10:57] MED LIST changes: +BAYER CHEWABLE81 MG PO; +CEFTRIAXONE1 G/VIAL IM; +GLIMEPIRIDE1 MG PO; +LIDOCAINE HC10 MG/M3 IM; +LYRICA75 MG PO; +ROCEPHIN 1 GM/D51 G1 IV
[2018-02-09 12:26] LABS: APPEARANCE HAZY (CLEAR); BILIRUBIN NEGATIVE (NEGATIVE); COLOR YELLOW (YELLOW); GLUCOSE NEGATIVE (NEGATIVE); KETONE NEGATIVE (NEGATIVE); NITRITE POSITIVE (NEGATIVE); PROTEIN NEGATIVE (NEGATIVE); SPECIFIC GRAVITY 1.015 (1.005-1.020); UROBILINOGEN NORMAL (NORMAL)
[2018-02-09 12:29] LABS: BACTERIA FEW /hpf (NONE SEEN); EPITHELIAL CELLS 0-5 /hpf (0-5); RED CELLS - URINE 0-5 /hpf (0-5)
== END | disposition home or self-care (01) ==
LOC: D.LABREF 10:57
PROVIDERS: Emergency Medicine
DX: Z46.6 Encounter for fitting and adjustment of urinary device (principal); Z46.89 Encounter for fitting and adjustment of other specified devices

== ENCOUNTER → 2018-02-15 11:02 | Outpatient (CLI) | payer MEDICARE ==
[2018-02-04 17:12] VITALS: BMI 30.1
[2018-02-15 11:29] LABS: APPEARANCE HAZY (CLEAR); COLOR STRAW (YELLOW)
[2018-02-15 11:30] LABS: BILIRUBIN NEGATIVE (NEGATIVE); GLUCOSE NEGATIVE (NEGATIVE); KETONE NEGATIVE (NEGATIVE); NITRITE POSITIVE (NEGATIVE); PROTEIN TRACE mg/dL (NEGATIVE); UROBILINOGEN NORMAL (NORMAL)
[2018-02-15 11:31] LABS: BACTERIA MODERATE /hpf (NONE SEEN); EPITHELIAL CELLS 0-5 /hpf (0-5); WHITE CELLS - URINE >50 /hpf (0-5)
[2018-02-15 11:32] LABS: AMORPHOUS SEDIMENT <1+ /lpf (NONE SEEN); MUCUS <1+ /lpf (NONE SEEN)
== END | disposition home or self-care (01) ==
LOC: D.LABREF 11:02
PROVIDERS: Emergency Medicine
DX: Z46.6 Encounter for fitting and adjustment of urinary device (principal); E11.40 Type 2 diabetes mellitus with diabetic neuropathy, unspecified

== ENCOUNTER → 2018-03-12 11:58 | Outpatient (CLI) | payer MEDICARE ==
[2018-02-04 17:12] VITALS: BMI 30.1
[2018-03-12 13:05] LABS: BASOPHILS 0.4 % (0-2); EOSINOPHILS 2.1 % (0-7); HEMOGLOBIN 13.3 g/dL (12-16); IMMATURE GRANULOCYTES 0.7 % (0-5); LYMPHOCYTES 19.1 % (15-50); MCH 29.7 pg (26.0-34.0); MCHC 32.4 g/dL (31.0-37.0); MCV 91.5 fL (80.0-100.0); MEAN PLATELET VOLUME 11.1 fL (7.4-10.4); MONOCYTES 13.8 % (2-11); NEUTROPHILS 63.9 % (40-80); RBC 4.48 10x6/uL (4.00-5.40); RDW 13.1 % (11.5-14.5)
[2018-03-12 13:26] LABS: CALC OSMOLALITY 275 mosm/kg (275-300); CALCIUM 9.2 mg/dL (8.5-10.1); CARBON DIOXIDE 29.7 mmol/L (21.0-32.0); CHLORIDE - SERUM 101 mmol/L (98-107); CREATININE - SERUM 0.7 mg/dL (0.6-1.3); POTASSIUM - SERUM 4.4 mmol/L (3.5-5.1); SODIUM 137 mmol/L (136-145); UREA NITROGEN 14 mg/dL (7-18); eGFR NON AFRICAN AMERICAN 88 mL/min (90-120)
[2018-03-12 13:30] LABS: GLUCOSE 119 mg/dL (74-106)
[2018-03-12 13:51] LABS: PLATELET COUNT 346 10x3/uL (130-400)
== END | disposition home or self-care (01) ==
LOC: D.LABREF 11:58
PROVIDERS: Orthopaedic Surgery
DX: Z46.6 Encounter for fitting and adjustment of urinary device (principal)

== ENCOUNTER → 2018-03-27 15:07 | Outpatient (CLI) | payer MEDICARE ==
[2018-02-04 17:12] VITALS: BMI 30.1
[2018-03-27 16:09] LABS: APPEARANCE CLOUDY (CLEAR); BILIRUBIN NEGATIVE (NEGATIVE); COLOR YELLOW (YELLOW); GLUCOSE NEGATIVE (NEGATIVE); KETONE NEGATIVE (NEGATIVE); NITRITE POSITIVE (NEGATIVE); PROTEIN NEGATIVE (NEGATIVE); SPECIFIC GRAVITY 1.015 (1.005-1.020); UROBILINOGEN NORMAL (NORMAL)
[2018-03-27 16:11] LABS: BACTERIA MANY /hpf (NONE SEEN); EPITHELIAL CELLS 0-5 /hpf (0-5)
== END | disposition home or self-care (01) ==
LOC: D.LABREF 15:07
PROVIDERS: Emergency Medicine
DX: R30.0 Dysuria (principal)

== ENCOUNTER 2018-04-03 07:34 | Outpatient (CLI) | payer MEDICARE ==
[~2018-04-03] VITALS: Ht 162.6 cm; Wt 79.5 kg
[~2018-04-03 07:34] MED LIST changes: -CEFTRIAXONE1 G/VIAL IM; -GLIMEPIRIDE1 MG PO; -LIDOCAINE HC10 MG/M3 IM; -LYRICA75 MG PO; -ROCEPHIN 1 GM/D51 G1 IV
[2018-04-03 09:13] VITALS: BP 168/57; Ht 162.6 cm; Wt 79.5 kg
== END 2018-04-03 18:30 | disposition home or self-care (01) ==
LOC: D.OPS 07:34
DX: I73.9 Peripheral vascular disease, unspecified (principal); Z01.812 Encounter for preprocedural laboratory examination

== ENCOUNTER 2018-04-08 10:00 | Inpatient (IN) | payer MEDICARE ==
[2018-04-08] VITALS (7 sets, daily range): BP systolic 146–197; BP diastolic 47–77; BMI 30.1
[~2018-04-08] VITALS: Ht 162.6 cm; Wt 79.4 kg
--- NOTE | ~2018-04-08 | HEMODYNAMI ---
PATIENT:STEPHANIE TRUJILLO MEDICAL RECORD: [id number] : 49 LOCATION:D.NE D.2216 ADMISSION DATE: 04/08/18 Generatedon:04/10/201815:31 Patient name: STEPHANIE TRUJILLO Patient #: [id number] SSN: : 1945 Date of study: 04/10/2018 Page: Of Hemodynamic Procedure Report Patient Data Patient Demographics Procedure consent was obtained First Name: STEPHANIE Gender: Female Last Name: CASSANDRA : 1945 [facility] Initial: R Age: 72 year(s) Patient #: [id number] Race: Unknown Additional ID: [id number] Contact details [address]: [address] [place] [address] State: [place] City: [place] Zip code: [address] Past Medical History Allergies Allergen Reaction Date Comments Reported Statins 02/04/2018 Other allergy 02/05/2018 statins Admission Admission Data Admission Date: 04/08/2018 Admission Time: 12:41 Room #: [facility] Procedure Procedure Types Cath Procedure Peripheral Cath Diagnostic Procedure Abd/Extremity Extremities Procedure Description Procedure Date Procedure Date: 04/10/2018 Procedure Start Time: 13:23 Procedure Staff Name Function Lazaro Worley MD Performing Physician Randall Murillo RT Monitor aMrivel Daniels RT Scrub Joe Mccloud RN Nurse Shelli Kruse RN Nurse Procedure Data Cath Procedure Fluoroscopy Diagnostic fluoroscopy Total fluoroscopy Time: time: 21.7 min 21.7 min Diagnostic fluoroscopy Total fluoroscopy dose: 368 dose: 368 mGy mGy Contrast Material Contrast Material Type Amount (ml) Isovue 300 70 Entry Location Entry Primary Successful Side Size Upsize 1 Upsize Entry Closure Zavala ccessful Closure Location (Fr) (Fr) 2 (Fr) Remarks Device Remarks Femoral Right 5 Fr 6 Fr Mynx artery Mid-Length Jimmy 6Fr/7Fr Diagnostic catheters Device Type Used For End Catheter Placement DIAGNOSTIC IMT 5Fr Catheter ([id number]) Procedure Medications Medication Administration Route Dosage Oxygen etCO2 Nasal cannula 4 l/min Lidocaine 1% added to field 20 Heparin Flush Bag added to field 3 bags (1000units/500ml NS) Versed I.V. 1 mg Fentanyl I.V. 50 mcg Versed I.V. 1 mg Fentanyl I.V. 50 mcg Heparin Bolus I.V. 4000 units Versed I.V. 1 mg Fentanyl I.V. 50 mcg Nitroglycerin IC/IA I.A. 300 mcg Heparin Bolus I.V. 2000 units Nitroglycerin IC/IA I.A. 300 mcg Nitroglycerin IC/IA I.A. 300 mcg Versed I.V. 1 mg Fentanyl I.V. 50 mcg Hemodynamics Rest Heart Rate: 79 (bpm) Snapshots Pre Cath Intra NCS Post Cath Vital Signs Time Heart Resp SPO2 etCO2 NIBP (mmHg) Rhythm Pain Sedation Rate (ipm) (%) (mmHg) Status Level (bpm) 13:00:19 76 22 27.8 190/82(132) NSR 0 (11) 10(A) , No pain 13:05:18 74 10 33.8 Auto NIBP NSR 0 (11) 10(A) off , No pain 13:10:17 73 22 100 24.8 Auto NIBP NSR 0 (11) 10(A) off , No pain 13:15:16 74 9 100 22.5 Auto NIBP NSR 0 (11) 10(A) off , No pain 13:20:15 73 22 100 27.8 Auto NIBP NSR 0 (11) 10(A) off , No pain 13:23:19 73 18 100 25.5 189/65(120) NSR 0 (11) 10(A) , No pain 13:28:19 77 22 100 33.1 Auto NIBP NSR 0 (11) 10(A) off , No pain 13:30:23 71 10 95 39.8 161/57(113) NSR 0 (11) 10(A) , No pain 13:35:23 70 12 99 38.3 Auto NIBP NSR 0 (11) 10(A) off , No pain 13:36:24 70 15 99 35.3 171/53(100) NSR 0 (11) 8(A) , No pain 13:41:23 66 13 96 38.3 Auto NIBP NSR 0 (11) 10(A) off , No pain 13:45:45 67 13 98 37.6 132/46(87) NSR 0 (11) 10(A) , No pain 13:50:44 76 15 98 36 Auto NIBP NSR 0 (11) 10(A) off , No pain 13:51:13 75 13 98 37.6 187/69(138) NSR 0 (11) 10(A) , No pain 13:52:13 74 13 98 37.6 Auto NIBP NSR 0 (11) 10(A) off , No pain 13:53:12 73 14 98 36.8 Auto NIBP NSR 0 (11) 10(A) off , No pain 13:54:11 73 15 98 37.6 Auto NIBP NSR 0 (11) 10(A) off , No pain 13:55:11 73 12 99 33 Auto NIBP NSR 0 (11) 10(A) off , No pain 13:56:10 71 14 99 39 Measuring NSR 0 (11) 10(A) , No pain 13:56:14 71 14 99 39 163/52(110) NSR 0 (11) 10(A) , No pain 13:57:13 69 12 100 38.3 Measuring NSR 0 (11) 10(A) , No pain 13:57:46 69 12 100 31.6 143/50(89) NSR 0 (11) 10(A) , No pain 14:02:12 70 13 37.5 144/42(100) NSR 0 (11) 10(A) , No pain 14:06:39 72 14 98 34.5 164/51(100) NSR 0 (11) 10(A) , No pain 14:11:11 72 13 98 23.3 166/48(104) NSR 0 (11) 10(A) , No pain 14:15:46 72 12 97 33.8 148/48(93) NSR 0 (11) 10(A) , No pain 14:20:10 71 14 97 33.8 149/50(103) NSR 0 (11) 10(A) , No pain 14:24:38 73 14 97 33.8 151/51(100) NSR 0 (11) 10(A) , No pain 14:29:02 72 14 96 34.5 146/55(105) NSR 0 (11) 10(A) , No pain 14:33:29 73 14 97 32.3 162/53(115) NSR 0 (11) 10(A) , No pain 14:37:53 71 13 96 25.5 145/50(97) NSR 0 (11) 10(A) , No pain 14:42:19 72 14 96 33.8 154/55(104) NSR 0 (11) 10(A) , No pain 14:46:48 73 14 97 33 157/59(111) NSR 0 (11) 10(A) , No pain 14:51:16 74 15 97 31.5 164/62(108) NSR 0 (11) 10(A) , No pain 14:56:15 75 15 98 33.8 Measuring NSR 0 (11) 10(A) , No pain 14:56:41 75 13 98 33.8 176/63(117) NSR 0 (11) 10(A) , No pain 15:01:08 74 12 97 33.8 173/63(107) NSR 0 (11) 10(A) , No pain 15:05:38 75 13 97 36 183/65(120) NSR 0 (11) 10(A) , No pain 15:10:09 75 14 97 21 182/68(125) NSR 0 (11) 10(A) , No pain 15:14:43 73 14 96 33.8 184/61(143) NSR 0 (11) 10(A) , No pain 15:19:21 75 15 97 36.8 183/62(146) NSR 0 (11) 10(A) , No pain 15:23:52 75 15 97 36 183/66(122) NSR 0 (11) 10(A) , No pain 15:28:20 75 16 97 36 182/69(120) NSR 0 (11) 10(A) , No pain Medications Time Medication Route Dose Verified Delivered Reason Notes Effe ctiveness by by 13:01:26 Oxygen etCO2 4 Lazaro Marques Per Nasal l/min Meir Kruse RN protocol cannula 13:01:38 Lidocaine 1% added 20ml Lazaro Willis Per to vial Meir Worley protocol field MD LARA 13:01:56 Heparin Flush added 3 Lazaro Willis Per Bag to bags Meir Worley protocol (1000units/500ml field MD LARA NS) 13:27:32 Versed I.V. 1 mg Lazaro Joe for Meir Ame RN sedation 13:27:43 Fentanyl I.V. 50 Lazaro Joe for mcg Meir Ame RN sedation 13:37:20 Versed I.V. 1 mg Lazaro Joe for Meir Ame RN sedation 13:37:29 Fentanyl I.V. 50 Lazaro Joe for mcg Meir Ame RN sedation 13:44:39 Heparin Bolus I.V. 4000 Lazaro Footer used for units Meir Ame career guidance counselor 13:58:13 Versed I.V. 1 mg Lazaro Joe for Meir Ame RN sedation 13:58:22 Fentanyl I.V. 50 Lazaro Joe for mcg Meir Ame RN sedation 14:11:52 Nitroglycerin I.A. 300 Lazaro Willis used for IC/IA mcg Meir Meir procedure MD LARA 14:23:21 Heparin Bolus I.V. 2000 Lazaro Diaz used for units Meir Ame career guidance counselor 14:23:41 Nitroglycerin I.A. 300 Lazaro Willis used for IC/IA mcg Meir Meir procedure MD LARA 14:35:12 Nitroglycerin I.A. 300 Lazaro Willis used for IC/IA mcg Meir Meir procedure MD LARA 14:35:43 Versed I.V. 1 mg Lazaro Joe for Meir Ame RN sedation 14:35:51 Fentanyl I.V. 50 Lazaro Footer for mcg Meir Ame RN sedation Procedure Log Time Note 12:40:45 Randall Murillo RT (R) (CV) sent for patient. Start room use. 12:41:14 Time tracking: Regular hours (M-F 7:00 - 5:00) 12:41:23 Plan of Care:Hemodynamics will remain stable., Cardiac rhythm will remain stable., Comfort level will be maintained., Respiratory function will remain adequate., Patient/ family verbilizes understanding of procedure., Procedure tolerated without complication., Recovers from procedure without complications.. 12:41:34 Patient received from Med/Surg to IR Alert and oriented. Tansferred to table in Supine position. 12:41:41 Correct patient and procedure confirmed by team. 12:41:43 Signed procedure consent form obtained from patient. 12:41:44 ECG and BP/O2 sat monitors applied to patient. 12:41:46 Full Disclosure recording started 12:41:46 - 12:41:49 H&P Date Dictated: 04/10/2018 Within 30 days and on chart.. 12:41:49 Pre-procedure instructions explained to patient. 12:41:50 Pre-op teaching completed and patient verbalized understanding. 12:41:51 Family in waiting room. 12:41:56 Patient NPO since Midnight. 12:42:02 Is the patient allergic to Iodine/contrast media? No. 12:44:00 Use device set IR Diagnostic 12:44:02 ACIST Syringe (50650) opened to sterile field. 12:44:02 ACIST Hand Control (67646) opened to sterile field. 12:44:03 ACIST Manifold (46593) opened to sterile field. 12:44:03 Bag Decanter (2002S) opened to sterile field. 12:44:03 Sterile Angiographic Pack opened to sterile field. 12:44:04 Tegaderm 4 x 4 (1626W) opened to sterile field. 12:49:17 Is patient on blood thinner?Yes 12:49:27 ACC The patient was administered the following blood thiners within the last 24 hours: ACCAspirin, ACCPlavix 12:49:29 Patient diabetic? Yes. 12:49:59 If diabetic: On Metformin? Yes 12:50:08 ----Pre-sedation anethsthesia assessment.---- 12:50:22 Previous problem with sedation/anesthesia? No ? 12:50:24 Snore? No 12:50:26 Sleep apnea? No 12:50:38 Deviated septum? No 12:50:41 Opens mouth fully? Yes 12:51:14 Sticks out tongue? No 12:51:18 Airway obstruction? No ? 12:51:20 Dentures? No ? 12:59:10 Vital chart was started 12:59:22 Pre procedure: right dorsailis pedis pulse Doppler 12:59:27 Pre procedure: right posterior tibial pulse Doppler 12:59:38 Pre procedure: left dorsailis pedis pulse Doppler 12:59:48 Baseline sample Acquired. 13:00:03 Patient pain scale 0/10 no pain. 13:00:18 IV patent on arrival in right forearm with 0.9% NaCl at [facility]. 13:00:22 Sharps counted by scrub and verified by R.N. 13:00:23 Alarms reviewed by R. N. 13:00:26 Right groin area was prepped with chlora-prep and draped in sterile fashion 13::26 Oxygen 4 l/min etCO2 Nasal cannula was administered by Shelli Kruse RN; Per protocol; 13:01:38 Lidocaine 1% 20ml vial added to field was administered by Lazaro cruz MD; Per protocol; 13:01:56 Heparin Flush Bag (1000units/500ml NS) 3 bags added to field was administered by Lazaro Worley MD; Per protocol; 13:20:31 --------ALL STOP TIME OUT------ 13:20:33 Final Timeout: patient, procedure, and site verified with staff and physician. All members of the team are in agreement. 13:20:36 Right groin site verified by team. 13:20:55 Sedation plan: IV Moderate Sedation Medication:Versed, Fentanyl 13:23:21 Procedure started. 13:23:31 Local anesthetic to right femoral artery with Lidocaine 1% by Lazaro Worley MD.INITIAL ACCESS ONLY 13:23:44 SHEATH 5FR [place] (FRJ996) opened to sterile field. 13:23:44 ARBOLEDA 260 wire (U58575) opened to sterile field. 13:23:44 BENTSON 145cm wire (W82613) opened to sterile field. 13:23:45 Micropuncture VSI 4FR kit opened to sterile field. 13:23:45 TUBING Contrast Injection High Pressure (SCO826W) opened to sterile field. 13:23:45 SHEATH 6FR Destination (RSR01) opened to sterile field. 13:23:48 A DIAGNOSTIC IMT 5Fr Catheter ([id number]) was advanced over the wire an d used for . 13:23:51 Access obtained with 4Fr micropunture. 13:24:16 A 5 Fr sheath was inserted into the Right Femoral artery 13:27:32 Versed 1 mg I.V. was administered by Joe Mccloud RN; for sedation; 13:27:43 Fentanyl 50 mcg I.V. was administered by Joe Mccloud RN; for sedation ; 13:37:20 Versed 1 mg I.V. was administered by Joe Mccloud RN; for sedation; 13:37:29 Fentanyl 50 mcg I.V. was administered by Joe Mccloud RN; for sedation ; 13:39:20 ROADRUNNER .035 260 glide wire (O41949) opened to sterile field. 13:43:39 CXI SUPPORT .035 135 CM STR catheter (M02031) opened to sterile field. 13:43:48 Sheath upsized to a 6 Fr Mid-Length. 13:44:31 CHOICE PT Floppy J 300cm guide wire ([id number]) opened to sterile field . 13:44:39 Heparin Bolus 4000 units I.V. was administered by Joe Mccloud RN; use d for procedure; 13:46:10 DILATOR, VESSEL 7/20 opened to sterile field. 13:55:46 Hawkone Medium Atherectomy System (H1-M) opened to sterile field. 13:58:13 Versed 1 mg I.V. was administered by Joe Mccloud RN; for sedation; 13:58:22 Fentanyl 50 mcg I.V. was administered by Joe Mccloud RN; for sedation ; 14:04:36 INFLATOR BasixTOUCH (HJ3526) opened to sterile field. 14:11:01 Inflate balloon Inflation number: 1 A CHOCOLATE 2.5 x 80 x 150 balloon ([id number]) was prepped and advanced across the Undefined1, then inflated to 0 KATERIN for 4:12 (min:sec). 14:11:52 Nitroglycerin IC/IA 300 mcg I.A. was administered by Lazaro Worley MD; used for procedure; 14:23:21 Heparin Bolus 2000 units I.V. was administered by Joe Mccloud RN; use d for procedure; 14:23:41 Nitroglycerin IC/IA 300 mcg I.A. was administered by Lazaro Worley MD; used for procedure; 14:35:12 Nitroglycerin IC/IA 300 mcg I.A. was administered by Lazaro Worley MD; used for procedure; 14:35:43 Versed 1 mg I.V. was administered by Joe Mccloud RN; for sedation; 14:35:51 Fentanyl 50 mcg I.V. was administered by Joe Mccloud RN; for sedation ; 14:48:35 Inflate balloon Inflation number: 1 A IN.PACT Admiral 4 x 150 x 130 DCB balloon ([id number]) was prepped and advanced across the Distal Superficial Femoral, Left, then inflated for 3:10 (min:sec). 14:54:03 Inflate balloon Inflation number: 1 A IN.PACT Admiral 5 x 150 x 130 DCB balloon ([id number]) was prepped and advanced across the Mid Superficial Femoral, Left, then inflated tofor 3:35 (min:sec). 15:04:33 Inflate balloon Inflation number: 1 A IN.PACT Admiral 5 x 120 x 130 DCB Balloon ([id number]) was prepped and advanced across the Proximal Superficial Femoral, Left, then inflated for 3:01 (min:sec). 15:05:30 SHEATH 6FR [place] (DQQ837) opened to sterile field. 15:09:43 MYNX SILICATOR 6FR/7FR (KA1418) opened to sterile field. 15:10:00 Sheath removed intact; hemostasis achieved with Mynx Jimmy 6Fr/7Fr to the Right Femoral artery. 15:10:04 Procedure ended.(Physican Out) 15:12:37 Fluoroscopy time 21.70 minutes. 15:12:43 Fluoroscopy dose: 368 mGy 15:12:43 Flurop Dose total: 368 15:16:16 Sharps counted by scrub and verified by R.N. 15:16:20 Insertion/operative site no bleeding no hematoma. 15:16:24 Post-op/insertion site Right Femoral artery dressed using a 4 x 4 and Tegaderm. 15:16:29 Post right femoral artery:stable 15:16:34 Post Procedure Pulses reassessed and unchanged 15:16:36 Post procedure instruction explained to patient.Patient verbalizes understanding. 15:16:37 Procedure and supply charges have been captured, reviewed, submitted an d are correct. 15:23:40 Contrast amount:Isovue 300 70ml. 15:31:09 Report given to Med/Surg. 15:31:22 Patient transfered to Med/Surg with Bed. 15:31:48 Vital chart was stopped Intervention Summary Intervention Notes Time ActionType Lesion and Equipment Used Action# Pressure Duration Attributes 14:11:01 Inflate Undefined1 CHOCOLATE 2.5 x 1 0 04:12 balloon 80 x 150 balloon ([id number]) 14:48:35 Inflate Distal IN.PACT Admiral 4 1 0 03:10 balloon Superficial x 150 x 130 DCB Femoral, balloon Left ([id number]) 14:54:03 Inflate Mid IN.PACT Admiral 5 1 0 03:35 balloon Superficial x 150 x 130 DCB Femoral, balloon Left ([id number]) 15:04:33 Inflate Proximal IN.PACT Admiral 5 1 0 03:01 balloon Superficial x 120 x 130 DCB Femoral, Balloon Left ([id number]) Device Usage Item Name Manufacture Quantity Catalog Number [facility] Lot# / Charge Number Stock Stock Serial# Code ACIST Syringe Acist 1 21110 287583 975359 586147 20 (98637) [employer] Systems Inc ACIST Hand Acist 1 81231 259691 636719 827686 5 Control (41650) [employer] Inc ACIST Manifold Acist 1 51160 103735 652240 651358 5 (28646) [employer] Systems Inc Bag Decanter Microtek 1 2001S 165461 34492 889492 5 (2001S) Medical Inc. Sterile Cardinal 1 [id number] 391286 838934 5 Angiographic [facility] 4 x 4 3M 1 1626W 522809 972688 569278 5 (1626W) SHEATH 5FR Terumo 1 CEI554 348732 116631 509091 40 [place] (JVN512) ARBOLEDA 260 wire Kartela Medical 1 X89105 975154 13535 512732 5 [id number] (R92885) BENTSON 145cm Cook [employer] 1 Q82471 628806 753134 5 wire (Z25406) Micropuncture VSI VSI VASCULAR 1 7266V 161145 426773 5 4FR kit SOLUTIONS TUBING Contrast Merit 1 FNN836D 008256 013262 495487 5 Injection High Medical Pressure (HBV586R) SHEATH 6FR Terumo 1 RSR01 408689 28087 440820 5 Destination (RSR01) DIAGNOSTIC IMT [place] 1 [id number] 263305 711687 31821 5 [id number] 5Fr Catheter Scientific ([id number]) ROADRUNNER .035 WiserTogether 1 G36593 461086 329715 785145 5 3747554 260 glide wire (I32742) CXI SUPPORT .035 WiserTogether 1 K86317 724031 894296 205477 5 8843154 135 CM STR catheter (E95652) CHOICE PT Floppy [place] 1 [id number] 079255 950737 976709 5 [id number] J 300cm guide Scientific wire ([id number]) DILATOR, VESSEL [facility] 1 E83470 412272 79320 375742 5 [id number] 03/01 Hawkone Medium Medtronic 1 H1-M 208652 529710 94 5 [id number] Atherectomy System (H1-M) INFLATOR Merit 1 XX5445 706560 872627 346357 5 [id number] Storelli Sports[employer] Medisoft Medical (TC1009) CHOCOLATE 2.5 x Cardinal 1 [id number] 714508 307410 764539 5 80 x 150 balloon Health O ([id number]) TW IN.PACT Admiral 4 Medtronic 1 [id number] 993619 4494434 657224 5 x 150 x 130 DCB balloon ([id number]) IN.PACT Admiral 5 Medtronic 1 [id number] 506419 0169526 329265 5 x 150 x 130 DCB balloon ([id number]) IN.PACT Admiral 5 Medtronic 1 [id number] 193048 739035 113729 5 x 120 x 130 DCB Balloon ([id number]) SHEATH 6FR Terumo 1 FLU078 947811 669660 461601 40 [place] (OUS925) MYNX SILICATOR 6FR/7FR Access 1 HA6711 757529 592854 5 [id number] (BT9034) Closure Signature Audit [place] Stage Time Signature Unsigned Intra-Procedure 04/10/2018 Randall 3:31:45 PM [place] RT (R) (CV) Signatures Monitor : Randall Signature : Lidia RT Date : Time : [address] [place] [address]
[2018-04-08 11:11] LABS: BASOPHILS 0.3 % (0-2); EOSINOPHILS 0.3 % (0-7); HEMATOCRIT 34.1 % (36.0-48.0); LYMPHOCYTES 8.8 % (15-50); MCHC 32.3 g/dL (31.0-37.0); MEAN PLATELET VOLUME 10.4 fL (7.4-10.4); MONOCYTES 13.9 % (2-11); NEUTROPHILS 75.7 % (40-80); PLATELET COUNT 281 10x3/uL (130-400); RBC 3.79 10x6/uL (4.00-5.40); WBC 14.2 10x3/uL (4.8-10.8)
[2018-04-08 11:30] LABS: ALBUMIN 2.5 g/dL (3.4-5.0); ANION GAP 10.9 mmol/L (8-16); BILIRUBIN - TOTAL 0.32 mg/dL (0.2-1.3); CALCIUM 9.1 mg/dL (8.5-10.1); CARBON DIOXIDE 26.7 mmol/L (21.0-32.0); CREATININE - SERUM 0.9 mg/dL (0.6-1.3); POTASSIUM - SERUM 3.6 mmol/L (3.5-5.1); PROTEIN - SERUM 7.4 g/dL (6.4-8.2)
[2018-04-08 12:11] LABS: C-REACTIVE PROTEIN 46.3 mg/dL (0.0-0.9)
[2018-04-08 12:32] LABS: ERYTHROCYTE SEDIMENTATION RATE 114 mm/hr (0-30)
[2018-04-09 03:09] VITALS: BP 140/44
[2018-04-09 09:02] VITALS: BP 125/111
[2018-04-09 12:13] LABS: ANION GAP 16.9 mmol/L (8-16); CALCIUM 8.5 mg/dL (8.5-10.1); CARBON DIOXIDE 23.9 mmol/L (21.0-32.0); CREATININE - SERUM 0.9 mg/dL (0.6-1.3); MAGNESIUM - SERUM 1.7 mg/dL (1.8-2.4); POTASSIUM - SERUM 3.8 mmol/L (3.5-5.1)
[2018-04-09] MEDS ORDERED: GLIMEPIRIDE1 MG PO (12:27)
[2018-04-09 12:29] LABS: HEMATOCRIT 34.9 % (36.0-48.0); HEMOGLOBIN 11.4 g/dL (12-16); MCH 29.5 pg (26.0-34.0); MCHC 32.7 g/dL (31.0-37.0); MCV 90.2 fL (80.0-100.0); MEAN PLATELET VOLUME 10.8 fL (7.4-10.4); PLATELET COUNT 307 10x3/uL (130-400); RBC 3.87 10x6/uL (4.00-5.40); RDW 14.3 % (11.5-14.5); WBC 22.8 10x3/uL (4.8-10.8)
[2018-04-09 12:51] LABS: INR 1.17 (0.85-1.17); PROTIME 14.5 SECONDS (11.6-15.0)
[2018-04-09 12:52] LABS: APTT 32.4 SECONDS (22.8-39.4)
[2018-04-09 13:03] LABS: EOSINOPHILS 1 % (0-7); LYMPHOCYTES 12 % (15-50); MONOCYTES 15 % (2-11); NEUTROPHILS 67 % (40-80); PLATELET ESTIMATE NORMAL
[2018-04-09 13:04] LABS: ANISOCYTOSIS OCC
[2018-04-09 15:49] LABS: APPEARANCE HAZY (CLEAR); BILIRUBIN NEGATIVE (NEGATIVE); COLOR YELLOW (YELLOW); GLUCOSE 50 mg/dL (NEGATIVE); KETONE MODERATE mg/dL (NEGATIVE); NITRITE NEGATIVE (NEGATIVE); PROTEIN 1+ mg/dL (NEGATIVE); SPECIFIC GRAVITY 1.015 (1.005-1.020); UROBILINOGEN NORMAL (NORMAL)
[2018-04-09 15:59] LABS: BACTERIA MANY /hpf (NONE SEEN); EPITHELIAL CELLS 0-5 /hpf (0-5); RED CELLS - URINE OCC /hpf (0-5); WHITE CELLS - URINE 0-5 /hpf (0-5)
[2018-04-09 16:20] VITALS: Ht 162.6 cm; Wt 79.4 kg
[2018-04-09 17:38] VITALS: BP 152/47
[2018-04-09 20:00] VITALS: BP 164/54
[2018-04-10] VITALS (11 sets, daily range): BP systolic 112–191; BP diastolic 51–92
[2018-04-11 04:00] VITALS: BP 178/64
[2018-04-11 06:53] LABS: BASOPHILS 0.4 % (0-2); EOSINOPHILS 2.2 % (0-7); HEMATOCRIT 34.1 % (36.0-48.0); HEMOGLOBIN 10.8 g/dL (12-16); IMMATURE GRANULOCYTES 6.9 % (0-5); LYMPHOCYTES 10.3 % (15-50); MCH 28.8 pg (26.0-34.0); MCHC 31.7 g/dL (31.0-37.0); MCV 90.9 fL (80.0-100.0); MEAN PLATELET VOLUME 10.3 fL (7.4-10.4); MONOCYTES 10.5 % (2-11); NEUTROPHILS 69.7 % (40-80); PLATELET COUNT 276 10x3/uL (130-400); RBC 3.75 10x6/uL (4.00-5.40); RDW 14.4 % (11.5-14.5); WBC 18.3 10x3/uL (4.8-10.8)
[2018-04-11 07:03] LABS: CALC OSMOLALITY 278 mosm/kg (275-300); CALCIUM 8.4 mg/dL (8.5-10.1); CARBON DIOXIDE 25.7 mmol/L (21.0-32.0); CHLORIDE - SERUM 99 mmol/L (98-107); CREATININE - SERUM 0.7 mg/dL (0.6-1.3); GLUCOSE 258 mg/dL (74-106); POTASSIUM - SERUM 3.9 mmol/L (3.5-5.1); SODIUM 135 mmol/L (136-145); UREA NITROGEN 13 mg/dL (7-18); eGFR NON AFRICAN AMERICAN 88 mL/min (90-120)
[2018-04-11 08:40] VITALS: BP 190/70
[2018-04-11 21:09] VITALS: BP 167/79
[2018-04-12 00:53] VITALS: BP 154/52
[2018-04-12 05:06] VITALS: BP 159/50
[2018-04-12 08:16] LABS: EOSINOPHILS 2.6 % (0-7); HEMATOCRIT 34.5 % (36.0-48.0); HEMOGLOBIN 10.9 g/dL (12-16); IMMATURE GRANULOCYTES 9.7 % (0-5); LYMPHOCYTES 13.5 % (15-50); MCH 28.8 pg (26.0-34.0); MCHC 31.6 g/dL (31.0-37.0); MCV 91.3 fL (80.0-100.0); MEAN PLATELET VOLUME 10.4 fL (7.4-10.4); MONOCYTES 12.4 % (2-11); NEUTROPHILS 60.8 % (40-80); PLATELET COUNT 296 10x3/uL (130-400); RBC 3.78 10x6/uL (4.00-5.40); RDW 14.4 % (11.5-14.5); WBC 18.2 10x3/uL (4.8-10.8)
[2018-04-12 08:36] LABS: CALC OSMOLALITY 281 mosm/kg (275-300); CALCIUM 7.9 mg/dL (8.5-10.1); CARBON DIOXIDE 25.6 mmol/L (21.0-32.0); CHLORIDE - SERUM 103 mmol/L (98-107); CREATININE - SERUM 0.7 mg/dL (0.6-1.3); GLUCOSE 258 mg/dL (74-106); POTASSIUM - SERUM 3.8 mmol/L (3.5-5.1); SODIUM 137 mmol/L (136-145); UREA NITROGEN 10 mg/dL (7-18); eGFR NON AFRICAN AMERICAN 88 mL/min (90-120)
[2018-04-12 13:32] VITALS: BP 108/54
[2018-04-12] MEDS ORDERED: ROCEPHIN 1 GM/D51 G1 IV (14:50)
[2018-04-12 15:24] VITALS: BP 151/64
== END 2018-04-12 19:07 | DRG 271 ==
LOC: D.ER 10:00 → D.MS 12:41 → D.EDHOLD 12:41 → D.MS 14:29
PROVIDERS: Emergency Medicine; Internal Medicine Nephrology; Radiology Diagnostic Radiology
PROC: 04CL3ZZ Extirpation of Matter from Left Femoral Artery, Percutaneous Approach (ICD-10-PCS; 2018-04-10)
PROC: 047L3Z1 Dilation of Left Femoral Artery using Drug-Coated Balloon, Percutaneous Approach (ICD-10-PCS; 2018-04-10)
PROC: 047N3Z1 Dilation of Left Popliteal Artery using Drug-Coated Balloon, Percutaneous Approach (ICD-10-PCS; 2018-04-10)
PROC: 047Q3ZZ Dilation of Left Anterior Tibial Artery, Percutaneous Approach (ICD-10-PCS; 2018-04-10)
PROC: 047U3ZZ Dilation of Left Peroneal Artery, Percutaneous Approach (ICD-10-PCS; 2018-04-10)
PROC: [UNRECOGNIZED PROCEDURE] (2018-04-10)
PROC: B41G1ZZ Fluoroscopy of Left Lower Extremity Arteries using Low Osmolar Contrast (ICD-10-PCS; principal; 2018-04-10 12:30)
DX: I70.262 Atherosclerosis of native arteries of extremities with gangrene, left leg (principal); I70.92 Chronic total occlusion of artery of the extremities; N39.0 Urinary tract infection, site not specified; N17.9 Acute kidney failure, unspecified; M86.672 Other chronic osteomyelitis, left ankle and foot; E11.69 Type 2 diabetes mellitus with other specified complication; E11.65 Type 2 diabetes mellitus with hyperglycemia; Z79.4 Long term (current) use of insulin; L97.522 Non-pressure chronic ulcer of other part of left foot with fat layer exposed; E11.42 Type 2 diabetes mellitus with diabetic polyneuropathy; I10 Essential (primary) hypertension; E78.5 Hyperlipidemia, unspecified; I25.10 Atherosclerotic heart disease of native coronary artery without angina pectoris; E03.9 Hypothyroidism, unspecified; M32.9 Systemic lupus erythematosus, unspecified; D50.9 Iron deficiency anemia, unspecified; B96.20 Unspecified Escherichia coli [E. coli] as the cause of diseases classified elsewhere

== ENCOUNTER 2018-04-12 16:17 | Inpatient (IN) | payer MEDICARE ==
[~2018-04-12] VITALS: Ht 162.6 cm; Wt 79.4 kg
--- NOTE | ~2018-04-12 | RHP ---
PATIENT: STEPHANIE TRUJILLO MEDICAL RECORD: [id number] ACCOUNT: [id number] LOCATION:[facility]1113 : 49 ADMISSION DATE: 04/12/18 REHABILITATION HISTORY AND PHYSICAL EXAMINATION POST ADMISSION PHYSICIAN EXAMINATION POST-ADMISSION PHYSICAL EXAMINATION AND HISTORY AND PHYSICAL DATE OF ADMISSION: 04/12/2018 ADMITTING DIAGNOSIS: Disuse myopathy. 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 She has got a history of hypertension, hyperlipidemia, coronary artery disease, lupus, peripheral neuropathy, diabetes, peripheral vascular disease that is status post revascularization. She presented to the Emergency Room with complaints of having leg and foot pain and UTI and symptoms have been present for approximately 1 week. On 03/27, she had a urine culture that was positive for E. coli. Initially started on Bactrim with an inadequate symptom relief, then changed to Rocephin which she received 3 IM injections at her PCP's office. On 04/03, she underwent an AFRO to determine flow. On exam, she had grade III foot ulcer noted on the left dorsal lateral foot. There was fairly well-appearing granulation tissue around the base with surrounding redness and moderate swelling. She was admitted for further evaluation and treatment. CTA demonstrated severe occlusive peripheral arterial disease. Interventional radiology was consulted, and she underwent a directional atherotomy of the SFA-pop on 04/10. Dr. Hollingsworth and Dr. Umanzor were consulted. Both discussed need for amputation, BKA versus AKA if revascularization was unsuccessful, but the patient refused amputation during this hospital stay. She is well known to Dr. Umanzor. He has performed an amputation of the second and third gangrenous toes as well as excisional debridement of the foot with partial excision of the medial cuneiform and application of NEOX graft on 08/23. She then required debridement of residual osteomyelitis on 11/26. The patient had been to Dr. Krishna for wound care and debridement of the residual osteomyelitis in the past. Prior to admit, she was living at home alone. She was independent with ADLs and transfers to a wheelchair. She has had prolonged immobility, progressive generalized weakness especially in lower extremities affecting her tolerance to PT, very fatigued, and limited flexion and extension of her lower extremities with noted proximal muscle strength decreased, mod-to-max assist for ADLs, mod-to-max assist for lam-is-sdnak and tia-ew-sekoi. BARRIERS TO DISCHARGE: She lives alone. She is on IV vancomycin for chronic osteomyelitis and Rocephin. She is nonweightbearing on her left foot and wears a brace on her right foot for Charcot foot making her a high risk for falls. She is motivated to regain her upper extremity strength so she can transfer to a wheelchair and hopefully be able to return home. COMORBIDITIES: Include gangrenous left foot, osteomyelitis, atherosclerosis with gangrene, chronic occlusive peripheral vascular disease, peripheral arterial disease, UTI, coronary artery disease, diabetes, fatigue, weakness, hyperglycemia, leukocytosis. PAST MEDICAL HISTORY: Significant for stroke, neuropathy, vertigo. She has got HISTORY AND PHYSICAL [id number] STEPHANIE TRUJILLO a history of cataracts, congestion, allergies, thyroid problems, diabetes, lupus, peripheral vascular disease, peripheral arterial disease, and hypertension. PAST SURGICAL HISTORY: Includes tonsillectomy, revascularization. She has had foot surgeries and grafts done in the past. ALLERGIES: STATINS. CURRENT MEDICATIONS: Include Floranex 460 mg daily. Rocephin, she is on a gram IV every 24 hours. She is on 30 units of NPH twice a day, prednisone 5 mg daily, Amaryl 1 mg daily, Plavix 75 mg daily, aspirin chewable 81 mg daily, Insta-Glucose as needed. She is on dextrose solution if needed for profound hypoglycemia. She is on glucagon as needed IM for hypoglycemia. She is on metoprolol 25 mg b.i.d., high-resistant sliding scale of Humulin. She is on Plaquenil 200 b.i.d., [place] 10/325 one tab every 4 hours p.r.n., Bonnie 60 mg daily, and Pletal 100 mg b.i.d. HABITS: No alcohol or tobacco use. FAMILY HISTORY: Noncontributory. SOCIAL HISTORY: The patient hopes to return back home and get back to her prior level of functioning. REVIEW OF SYSTEMS: GENERAL: Does complain of weakness. HEENT: Denies cold, cough, or congestion. CARDIOVASCULAR: Denies chest pain. PHYSICAL EXAMINATION: VITAL SIGNS: Stable, afebrile. GENERAL: A somewhat obese female, in no distress upon exam. HEENT: Normocephalic, atraumatic. Mucosa moist. NECK: Supple. No lymphadenopathy. LUNGS: Clear at this time. HEART: Regular rate and rhythm. ABDOMEN: Benign. EXTREMITIES: Does have noted amputations and also changes consistent with cellulitis/gangrene. NEUROLOGIC: She does have noted weakness. LABORATORY DATA: White count is 17.5 secondary to her prednisone, her hemoglobin and hematocrit are 9.5 and 30.3, and platelet count was noted to be 273. Sodium 134, potassium 3.5, BUN and creatinine of 8 and 0.7, blood sugar is noted to be 215. 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 The patient has potential to make improvement. We will institute following multidisciplinary therapies including, not limited to, physical, occupational, respiratory, speech, nutritional services, prosthetics and orthotics. Given her complex medical condition and risks for more complications, rehabilitation services cannot be provided at a low level of care such as senior care facility. HISTORY AND PHYSICAL [id number] STEPHANIE TRUJILLO PLAN: 1. Admit to [facility] for intensive inpatient therapy to include the following disciplines: A. Physical therapy to improve gait, all transfer skills and bed mobility to a modified independent level. B. Occupational therapy to improve activities of daily living to a modified independent level. C. Case management to assist with discharge planning and placement options. D. Nutrition to assist with nutritional needs. E. Rehabilitation nursing to assist in monitoring the patient's underlying medical conditions and to assist with any type of bowel or bladder management. 2. The patient's current medication and medical care will be continued. 3. The patient will be placed on standard fall precautions. 4. The patient's estimated length of stay approximately 7-10 days. 5. We will discuss this patient during care team staff meeting this week. TRANSINT:[id number] Voice Confirmation ID: [id number] DOCUMENT ID: [id number] RENÉE notes whether there has been none or any medical/functional change since admission: - No change since preadmission screen. RENÉE attests patient continues to be appropriate for IRF: - Continues to be appropriate. DARLENE RODRIGES MD at 1733 CC: [id number] DICTATION DATE: 04/13/18 1036 OFFSET LABEL REWINDER: 04/13/18 1115 DIS IN 04/16/18 [facility] [address] [facility] [place], [facility]
[~2018-04-12 16:17] MED LIST changes: +GLIMEPIRIDE1 MG PO; +ROCEPHIN 1 GM/D51 G1 IV
[2018-04-12 19:00] VITALS: BP 188/57
[2018-04-12 19:22] VITALS: BP 188/57; BMI 30.1
[2018-04-13 06:49] LABS: BASOPHILS 0.5 % (0-2); EOSINOPHILS 2.5 % (0-7); HEMATOCRIT 30.3 % (36.0-48.0); HEMOGLOBIN 9.5 g/dL (12-16); IMMATURE GRANULOCYTES 10.2 % (0-5); LYMPHOCYTES 13.1 % (15-50); MCH 28.1 pg (26.0-34.0); MCHC 31.4 g/dL (31.0-37.0); MCV 89.6 fL (80.0-100.0); MEAN PLATELET VOLUME 10.4 fL (7.4-10.4); MONOCYTES 12.7 % (2-11); PLATELET COUNT 273 10x3/uL (130-400); RBC 3.38 10x6/uL (4.00-5.40); RDW 14.3 % (11.5-14.5); WBC 17.5 10x3/uL (4.8-10.8)
[2018-04-13 07:05] LABS: CALC OSMOLALITY 271 mosm/kg (275-300); CALCIUM 8.1 mg/dL (8.5-10.1); CARBON DIOXIDE 25.6 mmol/L (21.0-32.0); CHLORIDE - SERUM 101 mmol/L (98-107); CREATININE - SERUM 0.7 mg/dL (0.6-1.3); GLUCOSE 215 mg/dL (74-106); POTASSIUM - SERUM 3.5 mmol/L (3.5-5.1); SODIUM 134 mmol/L (136-145); UREA NITROGEN 8 mg/dL (7-18); eGFR NON AFRICAN AMERICAN 88 mL/min (90-120)
[2018-04-13 07:25] VITALS: BP 148/43
[2018-04-14 07:10] VITALS: BP 132/44
[2018-04-14 12:33] VITALS: Ht 162.6 cm; Wt 79.4 kg
[2018-04-14 19:21] VITALS: BP 162/78
[2018-04-15 05:45] LABS: BASOPHILS 0.4 % (0-2); EOSINOPHILS 1.8 % (0-7); HEMATOCRIT 32.4 % (36.0-48.0); HEMOGLOBIN 10.2 g/dL (12-16); IMMATURE GRANULOCYTES 5.7 % (0-5); LYMPHOCYTES 11.6 % (15-50); MCH 28.7 pg (26.0-34.0); MCHC 31.5 g/dL (31.0-37.0); MEAN PLATELET VOLUME 10.3 fL (7.4-10.4); MONOCYTES 11.7 % (2-11); NEUTROPHILS 68.8 % (40-80); PLATELET COUNT 285 10x3/uL (130-400); RBC 3.56 10x6/uL (4.00-5.40); RDW 14.6 % (11.5-14.5)
[2018-04-15 05:50] LABS: CALCIUM 8.5 mg/dL (8.5-10.1); CARBON DIOXIDE 30.2 mmol/L (21.0-32.0); CHLORIDE - SERUM 100 mmol/L (98-107); CREATININE - SERUM 0.8 mg/dL (0.6-1.3); POTASSIUM - SERUM 3.6 mmol/L (3.5-5.1); SODIUM 138 mmol/L (136-145); eGFR NON AFRICAN AMERICAN 75 mL/min (90-120)
[2018-04-15 05:53] LABS: CALC OSMOLALITY 276 mosm/kg (275-300); GLUCOSE 136 mg/dL (74-106); UREA NITROGEN 11 mg/dL (7-18)
[2018-04-15 07:51] VITALS: BP 173/49
[2018-04-15 19:06] VITALS: BP 106/58
[2018-04-16 07:45] VITALS: BP 154/49
[2018-04-16] MEDS ORDERED: LYRICA75 MG PO (09:03)
[2018-04-16] MEDS ORDERED: HYDROCODONE-APA1 TAB PO (09:05)
[2018-04-16] MEDS ORDERED: CEFTRIAXONE1 G/VIAL IM (12:34)
[2018-04-16] MEDS ORDERED: LIDOCAINE HC10 MG/M3 IM (12:35)
== END 2018-04-16 16:50 | disposition home health service (06) | DRG 92 ==
LOC: D.REHAB 16:17
PROVIDERS: Emergency Medicine
DX: G72.89 Other specified myopathies (principal); E11.52 Type 2 diabetes mellitus with diabetic peripheral angiopathy with gangrene; I96 Gangrene, not elsewhere classified; N39.0 Urinary tract infection, site not specified; M86.9 Osteomyelitis, unspecified; I82.509 Chronic embolism and thrombosis of unspecified deep veins of unspecified lower extremity; Z79.4 Long term (current) use of insulin; R53.1 Weakness; R53.83 Other fatigue; D72.829 Elevated white blood cell count, unspecified; E03.9 Hypothyroidism, unspecified; E11.65 Type 2 diabetes mellitus with hyperglycemia; E11.69 Type 2 diabetes mellitus with other specified complication; I10 Essential (primary) hypertension

== ENCOUNTER → 2018-06-13 11:34 | Outpatient (CLI) | payer MEDICARE ==
[~2018-06-13 11:34] MED LIST changes: +CEFTRIAXONE1 G/VIAL IM; +LIDOCAINE HC10 MG/M3 IM; +LYRICA75 MG PO
[2018-06-13 13:40] LABS: APPEARANCE CLEAR (CLEAR); BACTERIA MODERATE /hpf (NONE SEEN); BILIRUBIN NEGATIVE (NEGATIVE); COLOR STRAW (YELLOW); EPITHELIAL CELLS 0-5 /hpf (0-5); GLUCOSE NEGATIVE (NEGATIVE); KETONE NEGATIVE (NEGATIVE); NITRITE NEGATIVE (NEGATIVE); PROTEIN NEGATIVE (NEGATIVE); UROBILINOGEN NORMAL (NORMAL)
[2018-06-13 13:41] LABS: MUCUS <1+ /lpf (NONE SEEN)
== END | disposition home or self-care (01) ==
LOC: D.LABREF 11:34
PROVIDERS: Emergency Medicine
DX: E11.51 Type 2 diabetes mellitus with diabetic peripheral angiopathy without gangrene (principal); Z87.440 Personal history of urinary (tract) infections

== ENCOUNTER → 2019-06-24 10:08 | Outpatient (CLI) | payer MEDICARE | END | disposition home or self-care (01) | LOC: D.US 10:08 | PROVIDERS: ATTEND Internal Medicine Cardiovascular Disease | DX: I70.245 Atherosclerosis of native arteries of left leg with ulceration of other part of foot (principal) ==